=== PATIENT | male | born 1970 | race Caucasian/White ===

== ENCOUNTER 2019-10-20 07:50 | Outpatient (CLI) | payer OTHER, SELFPAY ==
[2019-10-20 09:38] LABS: Alanine Aminotransferase 39 U/L (16-63); Cholesterol 162 mg/dL (0-200); HDL Direct 40 mg/dL (40-60); LDL Cholesterol Calculated 86 mg/dL (<130); Triglycerides 181 mg/dL (0-150)
== END 2019-10-20 07:51 | disposition home or self-care (01) ==
LOC: CHSLAB 07:51
PROVIDERS: Visit Provider Specialist
DX: I25.10 Atherosclerotic heart disease of native coronary artery without angina pectoris (principal)
CPT/HCPCS: 36415; 80061; 84460

== ENCOUNTER 2020-05-08 17:52 | Outpatient (CLI) | payer OTHER, SELFPAY ==
[2020-05-08 18:15] LABS: Hematocrit 43.8 % (40.0-54.0); Hemoglobin 15.1 g/dL (14.0-18.0); Mean Corpuscular HGB Conc 34.5 g/dL (32.0-36.0); Mean Corpuscular Hemoglobin 30.6 pg (27.0-31.0); Mean Corpuscular Volume 88.7 fL (78.0-102.0); Mean Platelet Volume 8.9 fl (8.7-11.0); Platelet Count Result 182 K/mm3 (150-420); Red Blood Count 4.94 M/mm3 (4.70-6.10); Red Cell Distribution Width 12.5 % (11.6-14.4); White Blood Count 8.2 K/mm3 (4.8-10.8)
[2020-05-08 18:42] LABS: Hemoglobin A1C 6.7 % (<5.7)
[2020-05-08 18:47] LABS: Alanine Aminotransferase 59 U/L (16-63); Albumin Level 4.3 g/dL (3.4-5.0); Alkaline Phosphatase 96 U/L (46-116); Anion Gap 8 mmol/L (8-16); Aspartate Amino Transferase 23 U/L (15-37); Bilirubin,Total 0.6 mg/dL (0.00-1.00); Blood Urea Nitrogen 22 mg/dL (7-18); Calcium 9.4 mg/dL (8.5-10.1); Carbon Dioxide 27 mmol/L (21-32); Chloride 102 mmol/L (98-108); Estimated Glomerular Filt Rate > 60; Glucose 129 mg/dL (70-99); Osmolality Calculated 289 mOsm/kg (285-295); Potassium 3.9 mmol/L (3.5-5.1); Sodium 137 mmol/L (136-145); Total Protein 7.3 g/dL (6.4-8.2)
== END 2020-05-08 17:53 | disposition home or self-care (01) ==
LOC: CHSLAB 17:54
PROVIDERS: PCP Family Medicine; Visit Provider Family Medicine
DX: E11.9 Type 2 diabetes mellitus without complications (principal)
CPT/HCPCS: 36415; 80053; 83036; 85027

== ENCOUNTER 2020-06-23 10:05 | Outpatient (CLI) | payer OTHER, SELFPAY ==
[2020-06-24 14:53] LABS: SARS-CoV-2 RNA PCR Negative
== END 2020-06-23 10:06 | disposition home or self-care (01) ==
LOC: CHSLAB 10:07
PROVIDERS: PCP Family Medicine; Visit Provider Family Medicine
DX: Z20.828 Contact with and (suspected) exposure to other viral communicable diseases (principal)
CPT/HCPCS: 87635; C9803; U0003

== ENCOUNTER 2020-07-15 10:15 | Outpatient (CLI) | payer OTHER, SELFPAY ==
[2020-07-15 23:36] LABS: SARS-CoV-2 RNA PCR Negative
== END 2020-07-15 10:16 | disposition home or self-care (01) ==
LOC: CHSLAB 10:18
PROVIDERS: PCP Family Medicine; Visit Provider Family Medicine
DX: Z20.828 Contact with and (suspected) exposure to other viral communicable diseases (principal)
CPT/HCPCS: 87635; C9803; U0003

== ENCOUNTER 2021-08-21 11:31 | Outpatient (CLI) | payer OTHER, SELFPAY ==
--- NOTE | ~2021-08-21 | XR_ITS ---
EXAMINATION: XR chest 2V DATE: 08/21/2021 12:05 INDICATION: COVID positive. Shortness of breath and cough. TECHNIQUE: PA and lateral views of the chest were obtained. COMPARISON: Chest radiograph dated 07/19/2019 FINDINGS: Prominent calcified nodule at the left lower lobe consistent with old granulomatous disease. The lung s remain otherwise clear with no focal airspace opacities, pulmonary edema, pleural effusion or pneum othorax. The cardiomediastinal silhouette is normal. Cholecystectomy clips in the upper abdomen. IMPRESSION: 1. No acute cardiopulmonary disease. Reviewed, dictated and finalized at location B. LINE OPERATOR
== END 2021-08-21 11:32 | disposition home or self-care (01) ==
LOC: CHSIMG 11:34
PROVIDERS: PCP Nurse Practitioner Family; Visit Provider Nurse Practitioner Family
DX: U07.1 COVID-19 (principal)
CPT/HCPCS: 71046

== ENCOUNTER 2021-09-14 13:45 | Outpatient (CLI) | payer OTHER, SELFPAY ==
--- NOTE | 2021-09-14 13:51 | ECG_ITS ---
Measurements Intervals [place] Rate: 80 P: 23 CA: 165 QRS: -12 QRSD: 89 T: 48 QT: 347 QTc: 402 Interpretive Statements SINUS RHYTHM LEFT VENTRICULAR HYPERTROPHY MINIMAL Q WAVES- HIGH LATERAL LEADS BORDERLINE ECG Electronically Signed On 09-14-2021 14:17:34 SENIOR SOFTWARE DEVELOPMENT ENGINEER by Dennys Peck D.O.
[2021-09-14 14:12] LABS: Add Urine Microscopic? YES; Appearance Urine Clear (Clear); Bilirubin Urine Negative (Negative); Blood Urine Negative (Negative); Color Urine Yellow (Yellow); Glucose Urine UA 1+ (Negative); Ketones Urine Negative (Negative); Leukocyte Esterase Ur Negative LEU/UL (Negative); Nitrate Urine Negative (Negative); Protein Urine Negative (Negative); Specific Grav Ur >= 1.030 (1.010-1.020); Urobilinogen Urine 0.2 mg/dL (0.2-1.0)
[2021-09-14 14:16] LABS: Bacteria Urine None seen /hpf; RBC Urine None seen /hpf (0-2); Squamous Epithelial Cell Urine Rare /hpf (Few); WBC Urine None seen /hpf (0-3)
[2021-09-14 14:17] LABS: Mucus Urine Few /lpf
[2021-09-14 14:29] LABS: Troponin I 6.4 ng/L (0.00-60.4)
[2021-09-14 14:54] LABS: Hemoglobin A1C 8.6 % (<5.7)
[2021-09-14 15:09] LABS: Alanine Aminotransferase 55 U/L (16-63); Alkaline Phosphatase 96 U/L (46-116); Anion Gap 11 mmol/L (8-16); Aspartate Amino Transferase 24 U/L (15-37); Bilirubin,Total 0.7 mg/dL (0.00-1.00); Blood Urea Nitrogen 15 mg/dL (7-18); Calcium 9.3 mg/dL (8.5-10.1); Carbon Dioxide 27 mmol/L (21-32); Chloride 100 mmol/L (98-108); Cholesterol 196 mg/dL (0-200); Estimated Glomerular Filt Rate 55; Glucose 181 mg/dL (70-99); HDL Direct 40 mg/dL (40-60); Osmolality Calculated 291 mOsm/kg (285-295); Potassium 4.3 mmol/L (3.5-5.1); Sodium 138 mmol/L (136-145); Total Protein 7.2 g/dL (6.4-8.2)
[2021-09-14 15:13] LABS: LDL Cholesterol Calculated 59 mg/dL (<130); Triglycerides 487 mg/dL (0-150)
[2021-09-14 15:35] LABS: LDL Cholesterol Direct 89 mg/dL (0-130)
== END 2021-09-14 13:46 | disposition home or self-care (01) ==
PROVIDERS: Family Medicine; PCP Nurse Practitioner Family; Visit Provider Nurse Practitioner Family
DX: R07.9 Chest pain, unspecified (principal); R82.90 Unspecified abnormal findings in urine; I10 Essential (primary) hypertension; E11.9 Type 2 diabetes mellitus without complications; E78.5 Hyperlipidemia, unspecified
CPT/HCPCS: 36415; 80053; 80061; 81001; 83036; 83721; 84484; 93005

== ENCOUNTER 2021-09-28 07:43 | Outpatient (CLI) | payer OTHER, SELFPAY ==
--- NOTE | 2021-09-28 09:00 | EST_ITS ---
Patient Info Name: Felipe Foreman Age: 50 years : 1970 Gender: Male Ht: 70 in Wt: 269 lbs BSA: 2.51 m2 HR: 84 bpm BP: 99 / 76 mmHg Technical Quality: Excellent Exam Date: 09/28/2021 9:19 AM Exam Location: [facility], [place] Patient Status: Outpatient Admit Date: 09/28/2021 Staff Ordering Physician: Swetha, Jennifer Stephens APRN Attending Provider: Lawrence, Jennifer Stephens APRN Exercise Technologist: Camila Hale CRT Exercise Physician: Ifeoma Russo CEP Exam Type: CA stress ciara w NM Study Info Indications SOB - CP - A nuclear stress test was performed. History/Risk Factors Hypertension: Yes Dyslipidemia: Yes Diabetes Mellitus: Yes History/Risk Factors CP. SOB. CAD. Diabetes. Dyslipidemia. Hypertension. Summary 1. 1. Negative lexiscan stress test for ischemic ST changes by ECG criteria. 2. 2. Stable hemodynamics throughout the test. 3. 3. Nuclear scan to follow and will be reported separately. Please correlate with it. Protocol: LEXISCAN Stress ECG Details Stage: REST Duration (min): 1 min : 56 sec HR (bpm): 83 SBP (mmHg): 99 DBP (mmHg): 76 Stage: REST Duration (min): 7 min : 17 sec HR (bpm): 82 SBP (mmHg): 99 DBP (mmHg): 76 Stage: STAGE 1 Duration (min): 0 min : 8 sec HR (bpm): 79 SBP (mmHg): 99 DBP (mmHg): 76 Stage: RECOVERY Duration (min): 0 min : 51 sec HR (bpm): 103 SBP (mmHg): 99 DBP (mmHg): 76 Stage: RECOVERY Duration (min): 1 min : 51 sec HR (bpm): 99 SBP (mmHg): 107 DBP (mmHg): 74 Stage: RECOVERY Duration (min): 2 min : 51 sec HR (bpm): 92 SBP (mmHg): 104 DBP (mmHg): 73 Stage: RECOVERY Duration (min): 3 min : 51 sec HR (bpm): 89 SBP (mmHg): 103 DBP (mmHg): 74 Stage: RECOVERY Duration (min): 4 min : 51 sec HR (bpm): 86 SBP (mmHg): 105 DBP (mmHg): 73 Stage: RECOVERY Duration (min): 5 min : 51 sec HR (bpm): 87 SBP (mmHg): 104 DBP (mmHg): 74 Stage: RECOVERY Duration (min): 6 min : 2 sec HR (bpm): 85 SBP (mmHg): 104 DBP (mmHg): 74 Rest HR: 82 bpm Peak HR: 105 bpm Rest Sys BP: 99 mmHg Peak Sys BP: 107 mmHg Max Pred HR: 168 bpm % Max Pred HR: 63 % Target HR: 143 bpm Max RPP: 11,235 bpm*mmHg BP Response: Patient exhibited a hypotensive response with stress Termination Reason: Completed Protocol Cardiac Symptoms: Flushing, Dyspnea, Chest discomfort Total Time: 0 min : 8 sec Rest Kelly BP: 76 mmHg Peak Kelly BP: 74 mmHg Total Dose: 0.4 mg Resting ECG Normal sinus rhythm - normal ECG. Stress ECG No ST changes. Arrhythmias No arrhythmias were observed during the examination. Report Signatures
--- NOTE | 2021-09-28 16:50 | WPDCARIOSTRE ---
Nuclear Stress Test INDICATIONS Indications: CAD, Chest pain PROCEDURE Procedure Performed: Myocardial Perf Spect-Multi Procedure: Patient underwent a lexiscan stress test and immediately was injected with 31.9 mCi of cardiolyte. Multiple tomographic images were obtained. These were of adequate quality. There is no evidence of decrease perfusion noted during stress imaging. A separate resting images were obtained after patient was injected with 9.7 mCi of cardiolyte. Multiple tomographic images were obtained. These were of adequate quality. There is no evidence of decrease perfusion noted during rest imaging. CONCLUSION Conclusion: 1. Normal myocardial perfusion imaging demonstrating no perfusion defects noted during stress or rest imaging. 2. No evidence of reversible ischemia. 3. Left ventriculogram demonstrates normal measured ejection fraction of 66%. No wall motion abnormalities. 4. TID score is normal at 1.03.
== END 2021-09-28 07:44 | disposition home or self-care (01) ==
LOC: CHSIMG 07:45
PROVIDERS: PCP Family Medicine; Visit Provider Internal Medicine Cardiovascular Disease
DX: I25.10 Atherosclerotic heart disease of native coronary artery without angina pectoris (principal); R07.9 Chest pain, unspecified; Z86.16 Personal history of COVID-19; R26.2 Difficulty in walking, not elsewhere classified; R06.02 Shortness of breath
CPT/HCPCS: 78452; 93017; A9502; J2785

== ENCOUNTER 2022-04-09 10:22 | Outpatient (CLI) | payer OTHER, SELFPAY ==
[2022-04-09 11:25] LABS: SARS-CoV-2 RNA PCR Negative (Negative)
== END 2022-04-09 10:23 | disposition home or self-care (01) ==
LOC: CHSLAB 10:24
PROVIDERS: PCP Family Medicine; Visit Provider Family Medicine
DX: R05.9 Cough, unspecified (principal); Z20.822 Contact with and (suspected) exposure to COVID-19
CPT/HCPCS: C9803; U0003; U0005

== ENCOUNTER 2022-04-09 13:59 | Outpatient (CLI) | payer OTHER, SELFPAY ==
--- NOTE | ~2022-04-09 | XR_ITS ---
EXAMINATION: XR chest 2V DATE: 04/09/2022 14:23 INDICATION: Cough, shortness of breath and chest pain TECHNIQUE: PA and lateral views of the chest were obtained. COMPARISON: Chest radiograph dated 08/31/2021 FINDINGS: No interval change in calcified nodules at the medial left lower lung zone consistent with old granul omatous disease. No new airspace opacities, pulmonary edema, pleural effusion or pneumothorax. The ca rdiomediastinal silhouette is normal. Cholecystectomy clips in the upper abdomen. IMPRESSION: 1. No acute cardiopulmonary disease. Reviewed, dictated and finalized at location A.
[2022-04-09 14:27] LABS: Hematocrit 41.9 % (40.0-54.0); Hemoglobin 14.5 g/dL (14.0-18.0); Mean Corpuscular HGB Conc 34.6 g/dL (32.0-36.0); Mean Corpuscular Hemoglobin 31.4 pg (27.0-31.0); Mean Corpuscular Volume 90.7 fL (78.0-102.0); Mean Platelet Volume 9.3 fl (8.7-11.0); Platelet Count Result 188 K/mm3 (150-420); Red Blood Count 4.62 M/mm3 (4.70-6.10); Red Cell Distribution Width 12.8 % (11.6-14.4); White Blood Count 7.9 K/mm3 (4.8-10.8)
[2022-04-09 14:43] LABS: Alanine Aminotransferase 41 U/L (16-63); Albumin Level 3.9 g/dL (3.4-5.0); Alkaline Phosphatase 90 U/L (46-116); Anion Gap 8 mmol/L (8-16); Aspartate Amino Transferase 23 U/L (15-37); Bilirubin,Total 0.7 mg/dL (0.00-1.00); Blood Urea Nitrogen 23 mg/dL (7-18); Calcium 9.2 mg/dL (8.5-10.1); Carbon Dioxide 25 mmol/L (21-32); Chloride 101 mmol/L (98-108); Estimated Glomerular Filt Rate > 60; Glucose 214 mg/dL (70-99); Osmolality Calculated 287 mOsm/kg (285-295); Sodium 134 mmol/L (136-145)
== END 2022-04-09 14:00 | disposition home or self-care (01) ==
LOC: CHSLAB 14:01
PROVIDERS: PCP Family Medicine; Visit Provider Family Medicine
DX: J18.9 Pneumonia, unspecified organism (principal)
CPT/HCPCS: 36415; 71046; 80053; 85027

== ENCOUNTER 2022-10-11 14:51 | Outpatient (CLI) | payer OTHER, SELFPAY ==
--- NOTE | ~2022-10-11 | XR_ITS ---
XR knee LT 3V 10/11/2022 15:17 Indication: Twisting injury of the left knee Procedure: 3 views left knee Comparison: No prior studies for comparison. Findings: No acute fracture, subluxation or dislocation. No significant joint space narrowing. No ludin nt effusion. There is irregular sclerosis in the distal tibial metaphysis, likely benign. Impression: 1: No acute bone or joint abnormality. Reviewed, dictated and finalized at location B. RIBUTION SYSTEMS SERVICEPERSON Impression: 1: No acute bone or joint abnormality.
== END 2022-10-11 14:52 | disposition home or self-care (01) ==
LOC: CHSIMG 14:53
PROVIDERS: PCP Family Medicine; Visit Provider Family Medicine
DX: M25.562 Pain in left knee (principal)
CPT/HCPCS: 73562

== ENCOUNTER 2022-10-18 07:32 | Outpatient (RCR) | payer OTHER, SELFPAY ==
--- NOTE | 2022-10-18 07:59 | PTOPEVAL1 ---
Assessment and note entered by Jerald Velasquez Evaluation Information Assessment Status Evaluation Diagnosis left knee pain Onset 09/15/22 Subjective Information Pt. reports that he was taking a dance class with his and planted his foot and the left knee twisted. He reports that he felt immediate pain. He reports that his pain gradually worsened over 3 weeks. He reports that he did receive a cortisone injection last week which has helped to decrease his pain. He reports pain is most notable with getting up from a seated position, going up and down stairs, as well as with climbing hills. He reports that he is on his feet often with work and is having difficulty with work. He reports that his goal is to decrease his pain with walking. Reported Pain Level Pain Score 0: Self Report Assessment PT Clinical Summary Pt. is a 51 year old male who enters the clinic with left knee pain. Pt. presentation is consistent with distal HS tendonitis, but cannot fully rule out meniscal pathology. continued skilled PT is indicated in order to improve strength and reduce pain in order to allow the pt. to be able to complete all work related duties without pain. Plan of Care Interventions Electrical Stimulation,Hot Pack/Cold Pack,Manual Therapy,Neuro Re-education,Therapeutic Activities, Therapeutic Exercise PT Services Indicated Yes Treatment Frequency and 2x/week x 6 visits Duration These treatments will address the objective and functional deficits as defined above. The patient will be advanced safely and appropriately in order for the patient to progress towards his/her prior level of function. Additional exercises will be introduced and as well as a comprehensive home exercise program upon discharge, if needed, ?to ensure carryover of functional gains achieved in the clinic. This treatment plan has been reviewed and agreement upon by the patient.
--- NOTE | 2022-11-05 08:15 | PTOPEVAL1 ---
Assessment and note entered by JT File, PT Evaluation Information Assessment Status Discharge Diagnosis left knee pain Onset 09/15/22 Subjective Information patient reports he feels about the same as when he started therapy. he reports he feels the knee will get a little better, and then gets worse again. he continues to have pain with standing/ walking and getting into and out of a car. Reported Pain Level Pain Score 4: Self Report Assessment PT Clinical Summary mr. hines presents to skilled PT services for his 6th skilled PT visit. he continues to presents with pain at rest, pain with activities, pain with palpation, and positive medial appleys compression. his symptoms are still suspect for a possible medial meniscus tear. he would benefit from DC of therapy at this time, and return to MD for MRI referral. he has only met goals for LE strength and HEP performance. Plan of Care Interventions Electrical Stimulation,Hot Pack/Cold Pack,Manual Therapy,Neuro Re-education,Therapeutic Activities, Therapeutic Exercise PT Services Indicated Yes Treatment Frequency and DC to MD for MRI referral Duration These treatments will address the objective and functional deficits as defined above. The patient will be advanced safely and appropriately in order for the patient to progress towards his/her prior level of function. Additional exercises will be introduced and as well as a comprehensive home exercise program upon discharge, if needed, ?to ensure carryover of functional gains achieved in the clinic. This treatment plan has been reviewed and agreement upon by the patient.
== END 2022-11-05 10:52 | disposition home or self-care (01) ==
LOC: CHSPT 07:32
PROVIDERS: PCP Family Medicine; Visit Provider Family Medicine
DX: M25.562 Pain in left knee (principal)
CPT/HCPCS: 97110; 97112; 97140; 97161; 97530

== ENCOUNTER 2022-12-02 07:27 | Outpatient (CLI) | payer OTHER, SELFPAY ==
--- NOTE | ~2022-12-02 | MR_ITS ---
MRI of the left knee Clinical history: Medial pain Technique: Coronal proton density and proton density-weighted images, sagittal proton-density and T2 fat-sat images, and axial proton-density fat-saturated images were acquired. Findings: Anterior and posterior cruciate ligaments are intact. Medial collateral ligament and the la teral collateral ligament complex are intact. Popliteus tendon is intact. Medial and lateral menisci appear intact, without definite tear. Articular cartilage is well preserved in the medial lateral compartments, and along the femoral troch harshil. There is patchy moderate chondromalacia patella. Extensor mechanism is intact. No significant joint effusion. Small [place] cyst present. There is semim embranosus bursitis. Impression: Semimembranosus bursitis. Small Reno's cyst. No ligamentous injury or meniscal tear. Patchy moderate chondromalacia patella. Reviewed, dictated and finalized at [facility]. Impression: Semimembranosus bursitis. Small Reno's cyst. No ligamentous injury or meniscal tear. Patchy moderate chondromalacia patella.
== END 2022-12-02 07:28 | disposition home or self-care (01) ==
LOC: CHSIMG 07:28
PROVIDERS: PCP Family Medicine; Visit Provider Family Medicine
DX: M25.562 Pain in left knee (principal); M71.562 Other bursitis, not elsewhere classified, left knee; M71.22 Synovial cyst of popliteal space [Baker], left knee; M94.262 Chondromalacia, left knee
CPT/HCPCS: 73721

== ENCOUNTER 2023-03-30 15:50 | Outpatient (CLI) | payer OTHER, SELFPAY ==
[2023-03-30 16:09] LABS: Basophils Absolute Auto 0.03 K/mm3 (0.00-0.10); Basophils Percent Auto 0.4 % (0.0-1.0); Eosinophils Absolute Auto 0.08 K/mm3 (0.02-0.50); Hematocrit 38.9 % (40.0-54.0); Hemoglobin 13.4 g/dL (14.0-18.0); Immature Granulocyte Absolute 0.03 K/mm3 (0.00-0.00); Immature Granulocyte Percent A 0.4 % (0.0-0.0); Lymphocytes Absolute Auto 2.42 K/mm3 (1.10-4.50); Lymphocytes Percent Auto 30.6 % (18.0-42.0); Mean Corpuscular HGB Conc 34.4 g/dL (32.0-36.0); Mean Corpuscular Hemoglobin 30.4 pg (27.0-31.0); Mean Corpuscular Volume 88.2 fL (78.0-102.0); Mean Platelet Volume 9.3 fl (8.7-11.0); Monocytes Absolute Auto 0.51 K/mm3 (0.10-0.90); Monocytes Percent Auto 6.5 % (2.0-11.0); Neutrophils Absolute Auto 4.8 K/mm3 (1.7-7.2); Neutrophils Percent Auto 61.1 % (50.0-70.0); Platelet Count Result 197 K/mm3 (150-420); Red Blood Count 4.41 M/mm3 (4.70-6.10); Red Cell Distribution Width 13.2 % (11.6-14.4); White Blood Count 7.9 K/mm3 (4.8-10.8)
[2023-03-30 16:18] LABS: Hemoglobin A1C 6.4 % (<5.7)
[2023-03-30 16:35] LABS: Appearance Urine Clear (Clear); Bilirubin Urine Negative (Negative); Blood Urine Negative (Negative); Color Urine Light Yellow (Yellow); Glucose Urine UA Negative (Negative); Ketones Urine Negative (Negative); Leukocyte Esterase Ur Negative (Negative); Nitrate Urine Negative (Negative); Protein Urine Negative (Negative); Specific Grav Ur 1.015 (1.010-1.020); Urobilinogen Urine 0.2 mg/dL (0.2-1.0)
[2023-03-30 16:37] LABS: Add Urine Microscopic? NO
[2023-03-30 16:41] LABS: Alanine Aminotransferase 33 U/L (16-63); Albumin Level 4.1 g/dL (3.4-5.0); Alkaline Phosphatase 82 U/L (46-116); Anion Gap 11 mmol/L (8-16); Aspartate Amino Transferase 22 U/L (15-37); Bilirubin,Total 0.7 mg/dL (0.00-1.00); Blood Urea Nitrogen 19 mg/dL (7-18); Calcium 9.6 mg/dL (8.5-10.1); Carbon Dioxide 28 mmol/L (21-32); Chloride 104 mmol/L (98-108); Cholesterol 139 mg/dL (0-200); Estimated Glomerular Filt Rate 55; Glucose 100 mg/dL (70-99); HDL Direct 42 mg/dL (40-60); LDL Cholesterol Calculated 66 mg/dL (<130); Osmolality Calculated 298 mOsm/kg (285-295); Potassium 4.5 mmol/L (3.5-5.1); Prostate Specific Antigen 0.5 ng/mL (< OR = 4.0); Sodium 143 mmol/L (136-145); Triglycerides 154 mg/dL (0-150)
[2023-03-30 16:43] LABS: Creatinine Urine 103.66 mg/dL (40-278); MALB Creatinine Ratio 12.5 mg/g (0-30); Microalbumin Urine Random < 13.0 mg/L
== END 2023-03-30 15:51 | disposition home or self-care (01) ==
LOC: CHSLAB 15:52
PROVIDERS: PCP Family Medicine; Visit Provider Family Medicine
DX: R30.0 Dysuria (principal); R35.1 Nocturia; E11.9 Type 2 diabetes mellitus without complications; I10 Essential (primary) hypertension
CPT/HCPCS: 36415; 80053; 80061; 81003; 82043; 83036; 84153; 85025; G0103

== ENCOUNTER 2023-10-28 09:50 | Outpatient (CLI) | payer OTHER, SELFPAY ==
[2023-10-28 10:22] LABS: Hemoglobin A1C 5.5 % (<5.7)
[2023-10-28 10:45] LABS: HIV 1 P24 AG Negative (Negative); HIV 1/2 AB Negative (Negative)
[2023-11-01 07:27] LABS: Chlamydia trachomatis NOT DETECTED (NOT DETECTE); Neisseria gonorrhoeae PCR NOT DETECTED (NOT DETECTE)
[2023-11-02 21:42] LABS: Hepatitis A Antibody IgM Nonreactive; Hepatitis B Core Antibody Nonreactive (Nonreactive); Hepatitis B Surface Antigen Nonreactive (Nonreactive); Hepatitis C Virus Antibody Nonreactive
== END 2023-10-28 09:51 | disposition home or self-care (01) ==
LOC: CHSLAB 09:52
PROVIDERS: PCP Family Medicine; Visit Provider Family Medicine
DX: E11.9 Type 2 diabetes mellitus without complications (principal); R74.01 Elevation of levels of liver transaminase levels; R21 Rash and other nonspecific skin eruption
CPT/HCPCS: 36415; 80074; 83036; 86695; 86696; 87491; 87591; 87806

== ENCOUNTER 2024-11-13 09:20 | Emergency (ER) | payer OTHER, SELFPAY ==
--- NOTE | ~2024-11-13 | XR_ITS ---
Portable chest x-ray Comparison: 04/09/2022 Clinical History: Chest pain, shortness of breath Findings: Lungs are clear, without focal consolidation or pleural effusion. Cardiomediastinal silho uette is stable. Bones and soft tissues are unremarkable. Impression: Clear lungs. Reviewed, dictated and finalized at location . Impression: Clear lungs.
[2024-11-13 09:20] VITALS: PULSE 69
--- NOTE | 2024-11-13 09:24 | ECG_ITS ---
Test Date: 2024-11-13 09:28:47 Measurements Intervals [place] Rate: 71 P: 47 MN: 171 QRS: 8 QRSD: 106 T: 61 QT: 369 QTc: 401 Interpretive Statements SINUS RHYTHM NORMAL ECG No previous ECG available for comparison Electronically Signed On 11-13-2024 09:35:36 CDT by Dennys Peck D.O.
[2024-11-13 09:25] VITALS: BP 136/88; PULSE 85; RESP 16; TEMP 36.6; O2SAT 98
--- NOTE | 2024-11-13 09:27 | ED.CHESTPAIN ---
HPI - Chest Pain General Chief Complaint: Chest Pain Stated Complaint: CHEST PAIN Time Seen by Provider: 11/13/24 09:26 Source: patient Mode of arrival: ambulatory Limitations: no limitations History of Present Illness HPI narrative: Patient is a 53-year-old male with known CAD in 50% coronary blockage a few years ago. He is here with chest pain on and off at rest but not exertion. He is not having any shortness of breath. MD complaint: chest pain Pertinent past history: coronary artery disease and other ( Hypertension, hyperlipidemia) Onset (ago): day(s) ( 1) Timing of current episode: episodic Onset: during rest Pain location: left chest Pain radiation: left arm Severity: mild Pain scale (0-10): 3 Quality: tightness and sharp Relieving factors: nothing Exacerbating factors: other ( patient has cervical spine neck problems which could be contributing to his left arm pain per his information) Context: other ( patient having chest pain on and off for the past day here for evaluation and reassurance) Associated symptoms: other ( none) Treatment prior to arrival: none Risk Factors Coronary artery disease risk factors: hyperlipidemia and hypertension Thoracic aortic dissection risk factors: none Related Data Home Medications ?Medication ?Instructions ?Recorded ?Confirmed ?Last Taken ?Type amlodipine 5 mg tablet 5 mg PO DAILY 10/28/23 07/18/24 Unknown History Allergies Allergy/AdvReac Type Severity Reaction Status Date / Time No Known Allergies Allergy Verified 07/31/24 13:36 Review of Systems Review of Systems: All systems reviewed & are unremarkable except as noted in HPI and below Constitutional: Constitutional: Reports no additional constitutional complaints Eyes: Eyes: Reports no additional eye complaints ENT: Reports system reviewed and no additional complaints, except as documented Cardiovascular: Cardiovascular: Reports no additional cardiovascular complaints Respiratory: Respiratory: Reports no additional respiratory complaints Gastrointestinal: Gastrointestinal: Reports no additional gastrointestinal complaints Genitourinary: Genitourinary: Reports no additional male genitourinary complaints Musculoskeletal: Musculoskeletal: Reports no additional musculoskeletal complaints Integumentary/Breasts: Skin/Breast: Reports system reviewed and no additional complaints, except as docu Neurologic: Reports system reviewed and no additional complaints, except as documented Psychiatric: Psychiatric: Reports no additional psychiatric complaints Endocrine: Endocrine: Reports no additional endocrine complaints Hematologic/Lymphatic: Hematologic/Lymphatic: Reports no additional hematologic/lymphatic complaints Allergic/Immunologic: Allergic/Immunologic: Reports no additional allergic/immunologic complaints PMFSH Past Medical History Medical History CKD (chronic kidney disease) IBS (irritable bowel syndrome) Hyperlipidemia DM2 (diabetes mellitus, type 2) WILFREDO (obstructive sleep apnea) Uses CPAP Overweight Surgical History Surgical History History of cholecystectomy 2016 History of hernia repair History of tonsillectomy and adenoidectomy Social History Social History Smoking status: Smoker, status unknown Living arrangements: with family Occupation/Education: occupation Additional occupation/education comments: Works at [employer] Gender identity (if verbalized by the patient): Male Exam Const: General: healthy appearing Nutritional Appearance: well nourished Orientation/consciousness: patient oriented x3 Limitations: no limitations HENMT: Head: normal to inspection Ears: external ears normal Face/Nose/Sinus: Normal external nose present Eyes: Conjunctivae: conjunctivae normal Pupils: Equal, round and reactive pupils present EOM: EOMs intact bilaterally Neck: Neck: normal visual inspection Chest: Chest palpation & inspection: normal inspection of the chest Resp: Effort & Inspection: normal respiratory effort and not labored Auscultation: clear to auscultation bilaterally and no crackles Cardio: Rate: regular rate Rhythm: regular rhythm Heart sounds: no murmurs GI: Inspection: non-distended GI Palp: Yes Soft to palpation and No Tenderness to palpation present (GI) Auscultation: normal bowel sounds : General: Yes bladder normal to palpation Back/Spine/Pelvis: Back: no CVA tenderness Skin: General skin exam: normal color Rashes: no rashes Wounds: no wounds Neuro: General: patient oriented x3 Cranial nerves: Yes Nystagmus not present Speech: normal speech Gait exam (Neuro): Normal gait present Extrem: General: normal to inspection Psych: Mental Status: mental status grossly normal Affect: normal affect Attitude: cooperative Course Vital Signs Vital signs: Vital Signs Pulse Rate 69 11/13/24 09:20 Oxygen Delivery Room Air 11/13/24 09:20 Temperature 36.6 C 11/13/24 09:25 Pulse Rate 85 11/13/24 09:25 Respiratory Rate 16 11/13/24 09:25 Blood Pressure 136/88 11/13/24 09:25 Pulse Oximetry 98 11/13/24 09:25 Oxygen Delivery Room Air 11/13/24 09:25 MDM - Chest Pain MDM Narrative Medical decision making narrative: patient is a 53-year-old male with some chest pain and known CAD here for evaluation. Will do a cardiac pulmonary workup at this time. We will do a double troponin and check with his orthodontic lab technician for further planning before disposition. Lab Data Attestation: I reviewed the patient's lab results. 11/13/24 09:38 11/13/24 09:38 Labs: Lab Results 11/13/24 11/13/24 Range/Units 09:38 11:53 WBC 5.3 (4.8-10.8) K/mm3 RBC 4.64 L (4.70-6.10) M/mm3 Hgb 13.8 L (14.0-18.0) g/dL Hct 39.5 L (40.0-54.0) % MCV 85.1 (78.0-102.0) fL MCH 29.7 (27.0-31.0) pg MCHC 34.9 (32-36) g/dL RDW 12.9 (11.6-14.4) % Plt Count 162 (150-420) K/mm3 MPV 8.9 (8.7-11.0) fl Immature Gran % (Auto) 0.2 H (0.0-0.0) % Neut % (Auto) 65.9 (50.0-70.0) % Lymph % (Auto) 27.0 (18.0-42.0) % [place] % (Auto) 5.6 (2.0-11.0) % Eos % (Auto) 0.7 L (1.0-6.0) % Baso % (Auto) 0.6 (0.0-1.0) % Lymph # (Auto) 1.44 (1.10-4.50) K/mm3 [place] # (Auto) 0.30 (0.10-0.90) K/mm3 Eos # (Auto) 0.04 (0.02-0.50) K/mm3 Baso # (Auto) 0.03 (0.00-0.10) K/mm3 Abs Immat Gran (auto) 0.01 H (0.00-0.00) K/mm3 Absolute Neuts (auto) 3.52 (1.70-7.20) K/mm3 Absolute Nucleated RBC 0.00 (0.00-0.00) K/mm3 Nucleated RBC % 0.0 (0-0.0) % PT 11.3 (9.50-12.1) Seconds INR 1.0 APTT 27.5 (23.9-30.70) Sec D-Dimer 0.19 (0.19-0.50) mg/L Sodium 138 (136-145) mmol/L Potassium 4.0 (3.5-5.1) mmol/L Chloride 103 (98-108) mmol/L Carbon Dioxide 26 (21-32) mmol/L Anion Gap 9 (4-12) mmol/L BUN 15 (7-18) mg/dL Creatinine 1.14 (0.70-1.30) mg/dL Estim Creat Clear Calc 67 ml/min Estimated GFR > 60 (59 - ) Glucose 167 H (70-99) mg/dL Calculated Osmolality 290 (285-295) mOsm/kg Calcium 8.9 (8.5-10.1) mg/dL Total Bilirubin 0.7 (0.00-1.00) mg/dL AST 23 (15-37) U/L ALT 29 (16-63) U/L Alkaline Phosphatase 90 (46-116) U/L Troponin I 5.5 6.9 (0.00-60.4) ng/L NT-Pro-B Natriuret Pep 33 (0-125) pg/mL Total Protein 6.9 (6.4-8.2) g/dL Albumin 4.1 (3.4-5.0) g/dL Lipase 19 (16-77) U/L Imaging Data Attestation: I personally reviewed and interpreted this imaging study as follows: ECG Data EKG #1: Attestation: I personally reviewed and interpreted this ECG as follows: ECG completion date: 11/13/24 ECG completion time: 11:20 EKG Interpretation: normal rate, sinus rhythm, no ectopy, normal QRS, normal QT, NL axis and no acute changes Discharge Plan Discharge Clinical Impression: Chest pain Qualifiers: Chest pain type: precordial pain Qualified Code(s): R07.2 - Precordial pain Patient Disposition: Home, Self-Care Condition: Stable Instructions: Chest Pain (ED) Additional Instructions: please follow-up with the primary doctor in the next week. Please follow-up with the orthodontic lab technician in the next week. Further outpatient testing suggested. Come back to the ER with any further chest pain. Patient Language: Kazakh Prescriptions: No Action amlodipine 5 mg tablet 5 mg PO DAILY fluticasone propionate [Allergy Relief (fluticasone)] 50 mcg/actuation spray,suspension 1 spray intranasal DAILY Qty: 16 0RF Rx Instructions: administer into each nostril sildenafil (pulm.hypertension) 20 mg tablet See Rx Instructions .ROUTE .COMPLEX Qty: 60 0RF Dose Instruction: TAKE 1-5 TABLETS BY MOUTH ON HOUR PRIOR TO SEXUAL ACTIVITY DAILY NEEDED Rx Instructions: TAKE 1-5 TABLETS BY MOUTH ON HOUR PRIOR TO SEXUAL ACTIVITY DAILY NEEDED Mounjaro 5 mg/0.5 mL pen injector See Rx Instructions .ROUTE .COMPLEX Qty: 2 0RF Dose Instruction: INJECT 5 MG SUBCUTANEOUSLY WEEKLY (E11.9) Rx Instructions: INJECT 5 MG SUBCUTANEOUSLY WEEKLY (E11.9) pravastatin 10 mg tablet See Rx Instructions .ROUTE .COMPLEX Qty: 90 0RF Dose Instruction: TAKE ONE TABLET BY MOUTH BEDTIME Rx Instructions: TAKE ONE TABLET BY MOUTH BEDTIME Follow-up/Referrals: Andrew Giles DO [Primary Care Provider] - Time of Disposition: 11:21
[2024-11-13 09:47] LABS: Basophils Absolute Auto 0.03 K/mm3 (0.00-0.10); Basophils Percent Auto 0.6 % (0.0-1.0); Eosinophils Absolute Auto 0.04 K/mm3 (0.02-0.50); Eosinophils Percent Auto 0.7 % (1.0-6.0); Hematocrit 39.5 % (40.0-54.0); Hemoglobin 13.8 g/dL (14.0-18.0); Immature Granulocyte Absolute 0.01 K/mm3 (0.00-0.00); Immature Granulocyte Percent A 0.2 % (0.0-0.0); Lymphocytes Absolute Auto 1.44 K/mm3 (1.10-4.50); Mean Corpuscular HGB Conc 34.9 g/dL (32-36); Mean Corpuscular Hemoglobin 29.7 pg (27.0-31.0); Mean Corpuscular Volume 85.1 fL (78.0-102.0); Mean Platelet Volume 8.9 fl (8.7-11.0); Monocytes Percent Auto 5.6 % (2.0-11.0); Neutrophils Absolute Auto 3.52 K/mm3 (1.70-7.20); Neutrophils Percent Auto 65.9 % (50.0-70.0); Platelet Count Result 162 K/mm3 (150-420); Red Blood Count 4.64 M/mm3 (4.70-6.10); Red Cell Distribution Width 12.9 % (11.6-14.4); White Blood Count 5.3 K/mm3 (4.8-10.8)
--- OUTSIDE RECORDS SUMMARY | 2024-11-13 09:52 | XMS_ITS | Encounter Summary ---
Author Organization [facility] Address [facility] [place] [address] Care Team Providers Care Correctional Probation Officer Name Role Phone Ky Sandoval MD Unavailable Unavailabl e Andrew Giles DO Primary Care Provider [phone] Jennifer Posada APRN, PRESSURIZATION MECHANIC-C Unavailable Ritchie Forrester MD Unavailable Encounter Details Date Type Department Care Team (Latest Contact Info) Description 06/02/2023 [employer] Message Enc [place] [address] [place] [address] Jennifer Posada APRN, PRESSURIZATION MECHANIC-C [address] [facility] [address] [place] [address] Effect of weight loss on prescriptions Social History Tobacco Use Types Packs/Day Years Used Date Smoking Tobacco: Former Smokeless Tobacco: Never Alcohol Use Standard Drinks/Week Comments Yes 0 (1 standard drink = 0.6 oz pur e alcohol) weekends Sex and Gender Information Value Date Recorded Sex Assigned at Not on file Legal Sex Male 9:56 AM PILOT MANAGER Gender Identity Male 09/14/2021 1:55 PM PILOT MANAGER Sexual Orientation Straight 09/14/2021 1: 55 PM PILOT MANAGER Occupation Industry Job Start Date Job End Date Not on file Not on file Not on file Not on file documented as of this encounter Plan of Treatment Upcoming Encounters Date Type Department Care Team (Late st Contact Info) Description 07/22/2025 1:30 PM PILOT MANAGER Office Visit [facility] [address] [place] [phone] Jennifer Posada APRN, PRESSURIZATION MECHANIC-C [address] [facility] [address] [place] [phone] documented as of this encounter Visit Diagnoses Not on filedocumented in this encounter Care Teams Correctional Probation Officer Relationship Specialty Start Date End Date Andrew Giles DO [address] [place] [address] PCP - General FAMILY PRACTICE 12/31/20 Ky Sandoval MD [place] Fruit Grading Supervisor CARDIOVASCULAR DISEASE 08/13/19 03/29/24 Jennifer Posada APRN, PRESSURIZATION MECHANIC-C [address] [facility] [address] [place] [phone] NURSE PRACTITIONER 03/30/24 Ritchie Forrester MD [address] [facility] [address] [place] [phone] Consulting Physician INTERVENTIONAL CARDIOLOGY 07/24/24 documented as of this encounter
--- OUTSIDE RECORDS SUMMARY | 2024-11-13 09:52 | XMS_ITS | Clinical Summary ---
Author Organization [facility] Address [address] [place] [address] Care Team Providers Care It Network Engineer Name Role Phone AnujaAndrew novoa Primary Care Provider [phone] Jennifer Posdaa APRN [place] GUIDEMilagrosC Unavailable Ritchie Forrester MD Unavailable Allergies Active Allergy Reactions Criticality Noted Date Comments Carvedilol Chest pressure 10/23/2019 Intolerance Medications pravastatin 10 MG tablet Take 1 tablet (10 mg total) by mouth nightly at bedtime. 90 tablet 3 0 Active nitroglycerin 0.[address] 1 tablet (0.4 mg total) under the tongue every 5 (five) minutes as needed for Chest Pain. 25 tablet 2 Active ASPIRIN LOW DOSE 81 MG chewable tablet CHEW AND SWALLOW ONE TABLET BY MOUTH EVERY MORNING 90 tablet 2 2 Active Multiple Vitamin (MULTIVITAMIN ADULT OR) Take 1 tablet by mouth daily. Active amLODIPine (NORVASC) 2.5 MG tabletIndications :Primary hypertension TAKE ONE TABLET BY MOUTH DAILY IN THE MORNING 90 tablet 4 Active fluticasone propionate (FLONASE) 50 MCG/ACT nasal spray 1 spray by Nasal route as needed. 4 Active valACYclovir (VALTREX) 500 MG tablet as needed. 4 Active MOUNJARO 5 MG/0.5ML injection Inject as directed once a week. Active Active Problems Problem Noted Date Diagnosed Date Hyperlipidemia 10/23/2019 WILFREDO (obstructive sleep apnea) 09/03/2019 Erectile dysfunction due to arterial insufficien cy 09/03/2019 Coronary artery disease DM (diabetes mellitus), type 2 ([facility]) Hypertension Encounters Date Type Department Care Team Description 11/13/2024 MyChart Message Enc [facility] [address] [place] [phone] Jennifer Posada, [place]O, WIMLAC Alfie Mobile EKG from Last 3 Months Family History Medical History Relation Comments COPD Father Relation Status Comments Father Alive Mother Social History Tobacco Use Types Packs/Day Years Used Date Smoking Tobacco: Former Smokeless Tobacco: Never Tobacco Cessation:Counseling Given: Not Answered Alcohol Use Standard Drinks/Week Comments Yes 0 (1 standard drink = 0.6 oz pur e alcohol) weekends Sex and Gender Information Value Date Recorded Sex Assigned at Not on file Legal Sex Male 9:56 AM ORDER PICKER Gender Identity Male 09/14/2021 1:55 PM ORDER PICKER Sexual Orientation Straight 09/14/2021 1: 55 PM ORDER PICKER Occupation Industry Job Start Date Job End Date Not on file Not on file Not on file Not on file Last Filed Vital Signs Vital Sign Reading Time Taken Comments Blood Pressure 116/74 07/23/2024 2:04 PM ORDER PICKER Pulse 61 07/23/2024 2:04 PM ORDER PICKER Temperature 36.7 C (98.1 F) 02/14/2023 11:15 AM CDT Respiratory Rate 18 07/23/2024 2:04 PM ORDER PICKER Oxygen Saturation 98% 07/23/2024 2:04 PM ORDER PICKER Inhaled Oxygen Concentration - - Weight 86.2 kg (190 lb) 07/23/2024 2:04 PM ORDER PICKER Height 177.8 cm (5' 10 ) 07/23/2024 2:04 PM ORDER PICKER Body Mass Index 27.26 07/23/2024 2:04 PM ORDER PICKER Plan of Treatment Upcoming Encounters Date Type Department Care Team (Late st Contact Info) Description 07/22/2025 1:30 PM ORDER PICKER Office Visit [facility] eld [address] [place] [address] Jennifer Posada, CAMPUS ADMINISTRATOR, [place] GUIDE-C [address] [facility] [address] [place] [phone] Health Maintenance Due Date Last Done Comments ASCVD Statin 1968 Colorectal Cancer Screening Colonoscopy (10 Years) 1968 Kidney Health Evaluation 1968 Annual Physical 01/01/1972 Pneumococcal Vaccine: Pediatrics (0 to 5 Years) and At-Risk Patients (6 to 64 Years) (1 of 2 - PCV) 1974 Diabetes: Retinopathy Eye Exam 1986 Hepatitis C 1986 DTaP, Tdap and Td Vaccines (1 - Tdap) 01/01/1988 Hepatitis B Vaccines (1 of 3 - 19+ 3-dose series) 01/01/1988 Zoster Vaccines (1 of 2) 2018 Hemoglobin A1C 03/14/2022 09/14/2021 ASCVD LDL 03/30/2024 03/30/2023, 06/0 04/2023, 09/14/2021, Additional history exists Lipid Panel 03/30/2024 03/30/2023, 06/0 04/2023, 09/14/2021, Additional history exists COVID-19 Vaccine ( season) 2024 10/08/2020, 09/17/2020 Meningococcal B Vaccine Aged Out No l onger eligible based on patient's age to complete this topic Meningococcal Vaccine Aged Out No mirna ariel eligible based on patient's age to complete this topic RSV Immunizations Under 20 Months Aged Out No longer eligible based on patient's age to complete this topic Procedures Procedure Name Priority Date/Time Associated Diagnosis Comments LIPID PANEL Routine 03/30/2023 HEMOGLOBIN, GLYCOSYLATED Routine 09/14/2021 from Last 3 Months or Most Recently Relevant to Health Maintenance Results * (ABNORMAL) LIPID PANEL (03/30/2023) CHOLESTEROL 139 0 - 200 HDL 42 40 - 60 TRIGLYCERIDES 154(A) 0 - 150 LDL (CALCULATED) 66 <130 03/30/2023 us Default History Genericprovider LABORATORY Final Result * HEMOGLOBIN, GLYCOSYLATED (09/14/2021) HGB A1C 8.6 % 09/14/2021 us Doc [facility] LABORATORY Final Result from Last 3 Months or Most Recently Relevant to Health Maintenance Insurance [employer] Advance Directives * Full Code (Latest Code Status on File) Date Activated Date Inactivated Comments 09/17/2019 4:43 PM 09/17/2019 8:20 PM Care Teams It Network Engineer Relationship Specialty Start Date End Date Andrew Giles DO [address] [place] [address] PCP - General FAMILY PRACTICE 12/31/20 Jennifer Posada, [place], [place] GUIDE-C [address] [facility] [address] [place] [address] NURSE PRACTITIONER 03/30/24 Ritchie Forrester MD [address] [facility] [address] [place] [phone] Consulting Physician INTERVENTIONAL CARDIOLOGY 07/24/24
--- OUTSIDE RECORDS SUMMARY | 2024-11-13 09:52 | XMS_ITS | Encounter Summary ---
Author Organization [facility] Address [facility] [place] [address] Care Team Providers Care Histology Tech Name Role Phone Ky Sandoval MD Unavailable Unavailabl e Andrew Giles DO Primary Care Provider [phone] Jennifer Posada APRN SUPERVISOR ASSEMBLY AND PACKING-C Unavailable Ritchie Forrester MD Unavailable [phone] Encounter Details Date Type Department Care Team (Late st Contact Info) Description 08/02/2023 MyChart Message Enc [facility] [address] [place] [address] Ky Sandoval MD Blood Pressure readings after medicine change Social History Tobacco Use Types Packs/Day Years Used Date Smoking Tobacco: Former Smokeless Tobacco: Never Alcohol Use Standard Drinks/Week Comments Yes 0 (1 standard drink = 0.6 oz pur e alcohol) weekends Sex and Gender Information Value Date Recorded Sex Assigned at Not on file Legal Sex Male 9:56 AM SHOW DESIGN SUPERVISOR Gender Identity Male 09/14/2021 1:55 PM SHOW DESIGN SUPERVISOR Sexual Orientation Straight 09/14/2021 1: 55 PM SHOW DESIGN SUPERVISOR Occupation Industry Job Start Date Job End Date Not on file Not on file Not on file Not on file documented as of this encounter Plan of Treatment Upcoming Encounters Date Type Department Care Team (Late st Contact Info) Description 07/22/2025 1:30 PM SHOW DESIGN SUPERVISOR Office Visit [facility] [address] [place] [address] Jennifer Posada APRN, SUPERVISOR ASSEMBLY AND PACKING-C [address] [facility] [address] [place] [address] documented as of this encounter Visit Diagnoses Not on filedocumented in this encounter Care Teams Histology Tech Relationship Specialty Start Date End Date Andrew Giles DO [address] [place] [address] PCP - General FAMILY PRACTICE 12/31/20 Ky Sandoval MD [place] Enlisted Advisor CARDIOVASCULAR DISEASE 08/13/19 03/29/24 Jennifer Posada APRN, SUPERVISOR ASSEMBLY AND PACKING-C [address] [facility] [address] [place] [address] NURSE PRACTITIONER 03/30/24 Ritchie Forrester MD [address] [facility] [address] [place] [address] Consulting Physician INTERVENTIONAL CARDIOLOGY 07/24/24 documented as of this encounter
--- OUTSIDE RECORDS SUMMARY | 2024-11-13 09:52 | XMS_ITS | Encounter Summary ---
Author Organization [facility] Address [facility] [place] [address] Care Team Providers Care Paint Mixer Name Role Phone Anujasommer Andrew DEE Primary Care Provider [phone] Jennifer Posada APRN, MANAGER COMMISSION-C Unavailable [phone] Ritchie Forrester MD Unavailable [phone] Encounter Details Date Type Department Care Team ([facility] Contact Info) Description 07/24/2024 [employer] Message Enc [facility] [address] [place] [address] Jennifer Posada APRN, MANAGER COMMISSION-C [address] [facility] [address] [place] [address] Your requested information Social History Tobacco Use Types Packs/Day Years Used Date Smoking Tobacco: Former Smokeless Tobacco: Never Alcohol Use Standard Drinks/Week Comments Yes 0 (1 standard drink = 0.6 oz pur e alcohol) weekends Sex and Gender Information Value Date Recorded Sex Assigned at Not on file Legal Sex Male 9:56 AM AGRICULTURAL RESEARCH DIRECTOR Gender Identity Male 09/14/2021 1:55 PM AGRICULTURAL RESEARCH DIRECTOR Sexual Orientation Straight 09/14/2021 1: 55 PM AGRICULTURAL RESEARCH DIRECTOR Occupation Industry Job Start Date Job End Date Not on file Not on file Not on file Not on file documented as of this encounter Plan of Treatment Upcoming Encounters Date Type Department Care Team ([facility] st Contact Info) Description 07/22/2025 1:30 PM AGRICULTURAL RESEARCH DIRECTOR Office Visit [facility] el [address] [place] [phone] Jennifer Posada APRN, MANAGER COMMISSION-C [address] [phone] documented as of this encounter Visit Diagnoses Not on filedocumented in this encounter Care Teams Paint Mixer Relationship Specialty Start Date End Date Andrew Giles DO [address] [place] [address] PCP - General FAMILY PRACTICE 12/31/20 Jennifer Posada APRN, MANAGER COMMISSION-C [address] [address] NURSE PRACTITIONER 03/30/24 Ritchie Forrester MD [address] [address] Consulting Physician INTERVENTIONAL CARDIOLOGY 07/24/24 documented as of this encounter
--- OUTSIDE RECORDS SUMMARY | 2024-11-13 09:52 | XMS_ITS | Encounter Summary ---
Author Organization [facility] Address [facility] [place] [address] Care Team Providers Care Credit Assessment Analyst Name Role Phone Ky Sandoval MD Unavailable Unavailabl e Andrew Giles DO Primary Care Provider Jennifer Posada APRN, RESEARCH QUALITY ASSURANCE SPECIALIST-C Unavailable [phone] Ritchie Forrester MD Unavailable [phone] Encounter Details Date Type Department Care Team (Late st Contact Info) Description 06/16/2023 [employer] Message Enc [facility] ield [address] [place] [address] Jennifer Posada APRN, RESEARCH QUALITY ASSURANCE SPECIALIST-C [address] [facility] [address] [place] [address] refill request Social History Tobacco Use Types Packs/Day Years Used Date Smoking Tobacco: Former Smokeless Tobacco: Never Alcohol Use Standard Drinks/Week Comments Yes 0 (1 standard drink = 0.6 oz pur e alcohol) weekends Sex and Gender Information Value Date Recorded Sex Assigned at Not on file Legal Sex Male 9:56 AM DISPLAY SPECIALIST Gender Identity Male 09/14/2021 1:55 PM DISPLAY SPECIALIST Sexual Orientation Straight 09/14/2021 1: 55 PM DISPLAY SPECIALIST Occupation Industry Job Start Date Job End Date Not on file Not on file Not on file Not on file documented as of this encounter Plan of Treatment Upcoming Encounters Date Type Department Care Team (Late st Contact Info) Description 07/22/2025 1:30 PM DISPLAY SPECIALIST Office Visit [facility] eld [address] [place] [address] Jennifer Posada APRN, RESEARCH QUALITY ASSURANCE SPECIALIST-C [address] [facility] [address] [place] [address] documented as of this encounter Visit Diagnoses Not on filedocumented in this encounter Care Teams Credit Assessment Analyst Relationship Specialty Start Date End Date Andrew Giles DO [address] [place] [address] PCP - General FAMILY PRACTICE 12/31/20 Ky Sandoval MD [place] Dray Driver CARDIOVASCULAR DISEASE 08/13/19 03/29/24 Jennifer Posada APRN, RESEARCH QUALITY ASSURANCE SPECIALIST-C [address] [facility] [address] [place] [address] NURSE PRACTITIONER 03/30/24 Ritchie Forrester MD [address] [facility] [address] [place] [address] Consulting Physician INTERVENTIONAL CARDIOLOGY 07/24/24 documented as of this encounter
--- OUTSIDE RECORDS SUMMARY | 2024-11-13 09:52 | XMS_ITS | Encounter Summary ---
Author Organization [facility] Address [address] [place] [address] Care Team Providers Care Automation Qa Tester Name Role Phone Ky Sandoval MD Unavailable [facility] Teo Burns MD Primary Care Provider [phone] Andrew Giles DO Primary Care Provider [phone] Jennifer Posada APRN, AUTOMOTIVE REFINISH TECHNICIAN-C Unavailable Ritchie Forrester MD Unavailable [phone] Encounter Details Date Type Department Care Team (Late Contact Info) Description 09/06/2019 Prep for Procedure [place] Machine Feeder Pre/Post [address] [place] [address] Ky Sandoval MD Social History Tobacco Use Types Packs/Day Years Used Date Smoking Tobacco: Former Smokeless Tobacco: Never Alcohol Use Standard Drinks/Week Comments Yes 0 (1 standard drink = 0.6 oz pur e alcohol) 2 per day or every other day Sex and Gender Information Value Date Recorded Sex Assigned at Not on file Legal Sex Male 9:56 AM HOE RUNNER Gender Identity Male 09/14/2021 1:55 PM HOE RUNNER Sexual Orientation Straight 09/14/2021 1: 55 PM HOE RUNNER documented as of this encounter Plan of Treatment Upcoming Encounters Date Type Department Care Team (Late Contact Info) Description 07/22/2025 1:30 PM HOE RUNNER Office Visit [facility] [address] [place] [address] Jennifer Posada APRN, AUTOMOTIVE REFINISH TECHNICIAN-C [address] [facility] [address] [place] [address] documented as of this encounter Visit Diagnoses Not on filedocumented in this encounter Care Teams Automation Qa Tester Relationship Specialty Start Date End Date Teo Hargrove MD [address] [place] [address] PCP - General FAMILY PRACTICE 08/28/19 12/30/20 Andrew Giles DO [address] [place] [address] PCP - General FAMILY PRACTICE 12/31/20 Ky Sandoval MD [place] Spring Clipper CARDIOVASCULAR DISEASE 08/13/19 03/29/24 Jennifer Posada APRN, AUTOMOTIVE REFINISH TECHNICIAN-C [address] [facility] [address] [place] [address] NURSE PRACTITIONER 03/30/24 Ritchie Forrester MD [address] [facility] [address] [place] [address] Consulting Physician INTERVENTIONAL CARDIOLOGY 07/24/24 documented as of this encounter
--- OUTSIDE RECORDS SUMMARY | 2024-11-13 09:52 | XMS_ITS | Encounter Summary ---
Author Organization [facility] Address [facility] [place] [address] Care Team Providers Care Cashier Parking Lot Name Role Phone Anujasommer Andrew DEE Primary Care Provider Jennifer Posada APRN, REGISTERED VETERINARY TECHNICIAN-C Unavailable Ritchie Forrester MD Unavailable Encounter Details Date Type Department Care Team ([facility] st Contact Info) Description 11/13/2024 4Tech Message Enc [place] [facility] [address] [place] [address] Jennifer Posada APRN, REGISTERED VETERINARY TECHNICIAN-C [address] [facility] [address] [place] [address] K[facility] Mobile EKG Social History Tobacco Use Types Packs/Day Years Used Date Smoking Tobacco: Former Smokeless Tobacco: Never Alcohol Use Standard Drinks/Week Comments Yes 0 (1 standard drink = 0.6 oz pur e alcohol) weekends Sex and Gender Information Value Date Recorded Sex Assigned at Not on file Legal Sex Male 9:56 AM LEGAL TECHNICIAN Gender Identity Male 09/14/2021 1:55 PM LEGAL TECHNICIAN Sexual Orientation Straight 09/14/2021 1: 55 PM LEGAL TECHNICIAN Occupation Industry Job Start Date Job End Date Not on file Not on file Not on file Not on file documented as of this encounter Plan of Treatment Upcoming Encounters Date Type Department Care Team (Late st Contact Info) Description 07/22/2025 1:30 PM LEGAL TECHNICIAN Office Visit [facility] el [address] [place] [phone] Jennifer Posada APRN, REGISTERED VETERINARY TECHNICIAN-C [address] [address] documented as of this encounter Visit Diagnoses Not on filedocumented in this encounter Care Teams Cashier Parking Lot Relationship Specialty Start Date End Date Andrew Giles DO [address] [place] [address] PCP - General FAMILY PRACTICE 12/31/20 Jennifer Posada APRN, REGISTERED VETERINARY TECHNICIAN-C [address] [address] NURSE PRACTITIONER 03/30/24 Ritchie Forrester MD [address] [address] Consulting Physician INTERVENTIONAL CARDIOLOGY 07/24/24 documented as of this encounter
[2024-11-13 09:59] LABS: D Dimer 0.19 mg/L (0.19-0.50); Partial Thromboplastin Time 27.5 Sec (23.9-30.70); Prothrombin Time 11.3 Seconds (9.50-12.1)
[2024-11-13 10:16] LABS: Alanine Aminotransferase 29 U/L (16-63); Albumin Level 4.1 g/dL (3.4-5.0); Alkaline Phosphatase 90 U/L (46-116); Anion Gap 9 mmol/L (4-12); Aspartate Amino Transferase 23 U/L (15-37); Bilirubin,Total 0.7 mg/dL (0.00-1.00); Blood Urea Nitrogen 15 mg/dL (7-18); Calcium 8.9 mg/dL (8.5-10.1); Carbon Dioxide 26 mmol/L (21-32); Chloride 103 mmol/L (98-108); Estimated CRCL calculation 67 ml/min; Estimated Glomerular Filt Rate > 60; Glucose 167 mg/dL (70-99); Lipase 19 U/L (16-77); Osmolality Calculated 290 mOsm/kg (285-295); Sodium 138 mmol/L (136-145); Total Protein 6.9 g/dL (6.4-8.2); Troponin I 5.5 ng/L (0.00-60.4)
[2024-11-13 10:20] VITALS: PULSE 71
[2024-11-13 10:21] LABS: NT Pro B Type Natriuretic Pept 33 pg/mL (0-125)
--- OUTSIDE RECORDS SUMMARY | 2024-11-13 11:09 | XMS_ITS | Encounter Summary ---
Author Organization [facility] Address [facility] [place] [address] Care Team Providers Care Hoist Mechanic Name Role Phone Ky Sandoval MD Unavailable Unavailabl e Andrew Giles DO Primary Care Provider [phone] Jennifer Posada APRN, PRIMARY SPECIAL EDUCATION TEACHER-C Unavailable Ritchie Forrester MD Unavailable [phone] Encounter Details Date Type Department Care Team (Latest Contact Info) Description 06/02/2023 Unigo Message Enc [place] [facility] [address] [place] [address] Jennifer Posada APRN, PRIMARY SPECIAL EDUCATION TEACHER-C [address] [facility] [address] [place] [address] Effect of weight loss on prescriptions Social History Tobacco Use Types Packs/Day Years Used Date Smoking Tobacco: Former Smokeless Tobacco: Never Alcohol Use Standard Drinks/Week Comments Yes 0 (1 standard drink = 0.6 oz pur e alcohol) weekends Sex and Gender Information Value Date Recorded Sex Assigned at Not on file Legal Sex Male 9:56 AM INSPECTOR SCREEN PRINTING Gender Identity Male 09/14/2021 1:55 PM INSPECTOR SCREEN PRINTING Sexual Orientation Straight 09/14/2021 1: 55 PM INSPECTOR SCREEN PRINTING Occupation Industry Job Start Date Job End Date Not on file Not on file Not on file Not on file documented as of this encounter Plan of Treatment Upcoming Encounters Date Type Department Care Team (Late st Contact Info) Description 07/22/2025 1:30 PM INSPECTOR SCREEN PRINTING Office Visit [facility] eld [address] [place] [address] Jennifer Posada APRN, PRIMARY SPECIAL EDUCATION TEACHER-C [address] [facility] [address] [place] [address] documented as of this encounter Visit Diagnoses Not on filedocumented in this encounter Care Teams Hoist Mechanic Relationship Specialty Start Date End Date Andrew Giles DO [address] [place] [address] PCP - General FAMILY PRACTICE 12/31/20 Ky Sandoval MD [place] Asbestos Coverer CARDIOVASCULAR DISEASE 08/13/19 03/29/24 Jennifer Posada APRN, PRIMARY SPECIAL EDUCATION TEACHER-C [address] [facility] [address] [place] [address] NURSE PRACTITIONER 03/30/24 Ritchie Forrester MD [address] [facility] [address] [place] [address] Consulting Physician INTERVENTIONAL CARDIOLOGY 07/24/24 documented as of this encounter
--- OUTSIDE RECORDS SUMMARY | 2024-11-13 11:09 | XMS_ITS | Encounter Summary ---
Author Organization [facility] Address [address] [place] [address] Care Team Providers Care Sprinkler Irrigation Equipment Mechanic Name Role Phone Ky Sandoval MD Unavailable [facility] Teo Burns MD Primary Care Provider [phone] Andrew Giles DO Primary Care Provider [phone] Jennifer Posada APRN, COMMUNITY HEALTH OUTREACH WORKER-C Unavailable [phone] Ritchie Forrester MD Unavailable [phone] Encounter Details Date Type Department Care Team (Late Contact Info) Description 09/06/2019 Prep for Procedure [place] Credit Charge Authorizer Pre/Post [address] [place] [address] Ky Sandoval MD Social History Tobacco Use Types Packs/Day Years Used Date Smoking Tobacco: Former Smokeless Tobacco: Never Alcohol Use Standard Drinks/Week Comments Yes 0 (1 standard drink = 0.6 oz pur e alcohol) 2 per day or every other day Sex and Gender Information Value Date Recorded Sex Assigned at Not on file Legal Sex Male 9:56 AM LOAN UNDERWRITER Gender Identity Male 09/14/2021 1:55 PM LOAN UNDERWRITER Sexual Orientation Straight 09/14/2021 1: 55 PM LOAN UNDERWRITER documented as of this encounter Plan of Treatment Upcoming Encounters Date Type Department Care Team (Late Contact Info) Description 07/22/2025 1:30 PM LOAN UNDERWRITER Office Visit [facility] [address] [place] [address] Jennifer Posada APRN, COMMUNITY HEALTH OUTREACH WORKER-C [address] [facility] [address] [place] [address] documented as of this encounter Visit Diagnoses Not on filedocumented in this encounter Care Teams Sprinkler Irrigation Equipment Mechanic Relationship Specialty Start Date End Date Teo Hargrove MD [address] [place] [address] PCP - General FAMILY PRACTICE 08/28/19 12/30/20 Andrew Giles DO [address] [place] [address] PCP - General FAMILY PRACTICE 12/31/20 Ky Sandoval MD [place] Licensed Nuclear Operator CARDIOVASCULAR DISEASE 08/13/19 03/29/24 Jennifer Posada APRN, COMMUNITY HEALTH OUTREACH WORKER-C [address] [facility] [address] [place] [address] NURSE PRACTITIONER 03/30/24 Ritchie Forrester MD [address] [facility] [address] [place] [address] Consulting Physician INTERVENTIONAL CARDIOLOGY 07/24/24 documented as of this encounter
--- OUTSIDE RECORDS SUMMARY | 2024-11-13 11:09 | XMS_ITS | Encounter Summary ---
Author Organization [facility] Address [facility] [place] [address] Care Team Providers Care Household Chores Name Role Phone Anujasommer Andrew DEE Primary Care Provider [phone] Jennifer Posada APRN, GENERAL MACHINIST-C Unavailable Ritchie Forrester MD Unavailable [phone] Encounter Details Date Type Department Care Team ([facility] Contact Info) Description 07/24/2024 Sports[employer] Message Enc [place] [facility] [address] [place] [address] Jennifer Posada APRN, GENERAL MACHINIST-C [address] [facility] [address] [place] [address] Your requested information Social History Tobacco Use Types Packs/Day Years Used Date Smoking Tobacco: Former Smokeless Tobacco: Never Alcohol Use Standard Drinks/Week Comments Yes 0 (1 standard drink = 0.6 oz pur e alcohol) weekends Sex and Gender Information Value Date Recorded Sex Assigned at Not on file Legal Sex Male 9:56 AM COTTON PULLER Gender Identity Male 09/14/2021 1:55 PM COTTON PULLER Sexual Orientation Straight 09/14/2021 1: 55 PM COTTON PULLER Occupation Industry Job Start Date Job End Date Not on file Not on file Not on file Not on file documented as of this encounter Plan of Treatment Upcoming Encounters Date Type Department Care Team ([facility] st Contact Info) Description 07/22/2025 1:30 PM COTTON PULLER Office Visit [facility] el [address] [place] [address] Jennifer Posada APRN, GENERAL MACHINIST-C [address] [phone] documented as of this encounter Visit Diagnoses Not on filedocumented in this encounter Care Teams Household Chores Relationship Specialty Start Date End Date Andrew Giles DO [address] [place] [address] PCP - General FAMILY PRACTICE 12/31/20 Jennifer Posada APRN, GENERAL MACHINIST-C [address] [address] NURSE PRACTITIONER 03/30/24 Ritchie Forrester MD [address] [address] Consulting Physician INTERVENTIONAL CARDIOLOGY 07/24/24 documented as of this encounter
--- OUTSIDE RECORDS SUMMARY | 2024-11-13 11:09 | XMS_ITS | Encounter Summary ---
Author Organization [facility] Address [facility] [place] [address] Care Team Providers Care Product Demonstrator Name Role Phone Ky Sandoval MD Unavailable Unavailabl e Andrew Giles DO Primary Care Provider Jennifer Posada APRN, AUTOMOTIVE PARTS COUNTER ASSOCIATE-C Unavailable Ritchie Forrester MD Unavailable [phone] Encounter Details Date Type Department Care Team (Late st Contact Info) Description 06/16/2023 Natero Message Enc [facility] ield [address] [place] [address] Jennifer Posada APRN, AUTOMOTIVE PARTS COUNTER ASSOCIATE-C [address] [facility] [address] [place] [address] refill request Social History Tobacco Use Types Packs/Day Years Used Date Smoking Tobacco: Former Smokeless Tobacco: Never Alcohol Use Standard Drinks/Week Comments Yes 0 (1 standard drink = 0.6 oz pur e alcohol) weekends Sex and Gender Information Value Date Recorded Sex Assigned at Not on file Legal Sex Male 9:56 AM BORING MACHINE OPERATOR VERTICAL Gender Identity Male 09/14/2021 1:55 PM BORING MACHINE OPERATOR VERTICAL Sexual Orientation Straight 09/14/2021 1: 55 PM BORING MACHINE OPERATOR VERTICAL Occupation Industry Job Start Date Job End Date Not on file Not on file Not on file Not on file documented as of this encounter Plan of Treatment Upcoming Encounters Date Type Department Care Team (Late st Contact Info) Description 07/22/2025 1:30 PM BORING MACHINE OPERATOR VERTICAL Office Visit [facility] eld [address] [place] [address] Jennifer Posada APRN, AUTOMOTIVE PARTS COUNTER ASSOCIATE-C [address] [facility] [address] [place] [address] documented as of this encounter Visit Diagnoses Not on filedocumented in this encounter Care Teams Product Demonstrator Relationship Specialty Start Date End Date Andrew Giles DO [address] [place] [address] PCP - General FAMILY PRACTICE 12/31/20 Ky Sandoval MD [place] Financial Administration Officer CARDIOVASCULAR DISEASE 08/13/19 03/29/24 Jennifer Posada APRN, AUTOMOTIVE PARTS COUNTER ASSOCIATE-C [address] [facility] [address] [place] [address] NURSE PRACTITIONER 03/30/24 Ritchie Forrester MD [address] [facility] [address] [place] [address] Consulting Physician INTERVENTIONAL CARDIOLOGY 07/24/24 documented as of this encounter
--- OUTSIDE RECORDS SUMMARY | 2024-11-13 11:09 | XMS_ITS | Encounter Summary ---
Author Organization [facility] Address [facility] [place] [address] Care Team Providers Care Orthodontic Treatment Coordinator Name Role Phone Anujasommer Andrew DEE Primary Care Provider Jennifer Posada APRN, MECHANICAL METER TESTER-C Unavailable Ritchie Forrester MD Unavailable Encounter Details Date Type Department Care Team ([facility] st Contact Info) Description 11/13/2024 Graze Message Enc [facility] [address] [place] [address] Jennifer Posada APRN, MECHANICAL METER TESTER-C [address] [facility] [address] [place] [address] Kardia Mobile EKG Social History Tobacco Use Types Packs/Day Years Used Date Smoking Tobacco: Former Smokeless Tobacco: Never Alcohol Use Standard Drinks/Week Comments Yes 0 (1 standard drink = 0.6 oz pur e alcohol) weekends Sex and Gender Information Value Date Recorded Sex Assigned at Not on file Legal Sex Male 9:56 AM BODY SERVICE TEAM MEMBER Gender Identity Male 09/14/2021 1:55 PM BODY SERVICE TEAM MEMBER Sexual Orientation Straight 09/14/2021 1: 55 PM BODY SERVICE TEAM MEMBER Occupation Industry Job Start Date Job End Date Not on file Not on file Not on file Not on file documented as of this encounter Plan of Treatment Upcoming Encounters Date Type Department Care Team (Late st Contact Info) Description 07/22/2025 1:30 PM BODY SERVICE TEAM MEMBER Office Visit [facility] el [address] [place] [address] Jennifer Posada APRN, MECHANICAL METER TESTER-C [address] [address] documented as of this encounter Visit Diagnoses Not on filedocumented in this encounter Care Teams Orthodontic Treatment Coordinator Relationship Specialty Start Date End Date Andrew Giles DO [address] [place] [address] PCP - General FAMILY PRACTICE 12/31/20 Jennifer Posada APRN, MECHANICAL METER TESTER-C [address] [address] NURSE PRACTITIONER 03/30/24 Ritchie Forrester MD [address] [address] Consulting Physician INTERVENTIONAL CARDIOLOGY 07/24/24 documented as of this encounter
--- OUTSIDE RECORDS SUMMARY | 2024-11-13 11:09 | XMS_ITS | Encounter Summary ---
Author Organization [facility] Address [facility] [place] [address] Care Team Providers Care Torch Shearer Name Role Phone Ky Sandoval MD Unavailable Unavailabl e Andrew Giles DO Primary Care Provider Jennifer Posada APRN MAINFRAME DEVELOPER-C Unavailable Ritchie Forrester MD Unavailable [phone] Encounter Details Date Type Department Care Team (Late st Contact Info) Description 08/02/2023 MyChart Message Enc [facility] [address] [place] [phone] Ky Sandoval MD Blood Pressure readings after medicine change Social History Tobacco Use Types Packs/Day Years Used Date Smoking Tobacco: Former Smokeless Tobacco: Never Alcohol Use Standard Drinks/Week Comments Yes 0 (1 standard drink = 0.6 oz pur e alcohol) weekends Sex and Gender Information Value Date Recorded Sex Assigned at Not on file Legal Sex Male 9:56 AM LIGHTER CAPTAIN Gender Identity Male 09/14/2021 1:55 PM LIGHTER CAPTAIN Sexual Orientation Straight 09/14/2021 1: 55 PM LIGHTER CAPTAIN Occupation Industry Job Start Date Job End Date Not on file Not on file Not on file Not on file documented as of this encounter Plan of Treatment Upcoming Encounters Date Type Department Care Team (Late st Contact Info) Description 07/22/2025 1:30 PM LIGHTER CAPTAIN Office Visit [facility] [address] [place] [address] Jennifer Posada APRN, MAINFRAME DEVELOPER-C [address] [facility] [address] [place] [address] documented as of this encounter Visit Diagnoses Not on filedocumented in this encounter Care Teams Torch Shearer Relationship Specialty Start Date End Date Andrew Giles DO [address] [place] [address] PCP - General FAMILY PRACTICE 12/31/20 Ky Sandoval MD [place] Composing Room Supervisor CARDIOVASCULAR DISEASE 08/13/19 03/29/24 Jennifer Posada APRN, MAINFRAME DEVELOPER-C [address] [facility] [address] [place] [address] NURSE PRACTITIONER 03/30/24 Ritchie Forrester MD [address] [facility] [address] [place] [address] Consulting Physician INTERVENTIONAL CARDIOLOGY 07/24/24 documented as of this encounter
--- OUTSIDE RECORDS SUMMARY | 2024-11-13 11:09 | XMS_ITS | Clinical Summary ---
Author Organization [facility] Address [address] [place] [address] Care Team Providers Care Resource Economist Name Role Phone AnujaAndrew novoa Primary Care Provider [phone] Jennifer Posada APRN AGER OPERATORMilagrosC Unavailable Ritchie Forrester MD Unavailable Allergies Active [...] artery disease DM (diabetes mellitus), type 2 ([facility]) Hypertension Encounters Date Type Department Care Team Description 11/13/2024 MyChart Message Enc [facility] [address] [place] [address] Jennifer Posada, MAYITO, WILMAC Alfie Mobile EKG from Last 3 Months [...] on file Legal Sex Male 9:56 AM COLD ROLLING COORDINATOR Gender Identity Male 09/14/2021 1:55 PM COLD ROLLING COORDINATOR Sexual Orientation Straight 09/14/2021 1: 55 PM COLD ROLLING COORDINATOR Occupation Industry Job Start Date Job End Date Not on file Not on file Not on file Not on file Last Filed Vital Signs Vital Sign Reading Time Taken Comments Blood Pressure 116/74 07/23/2024 2:04 PM COLD ROLLING COORDINATOR Pulse 61 07/23/2024 2:04 PM COLD ROLLING COORDINATOR Temperature 36.7 C (98.1 F) 02/14/2023 11:15 AM CDT Respiratory Rate 18 07/23/2024 2:04 PM COLD ROLLING COORDINATOR Oxygen Saturation 98% 07/23/2024 2:04 PM COLD ROLLING COORDINATOR Inhaled Oxygen Concentration - - Weight 86.2 kg (190 lb) 07/23/2024 2:04 PM COLD ROLLING COORDINATOR Height 177.8 cm (5' 10 ) 07/23/2024 2:04 PM COLD ROLLING COORDINATOR Body Mass Index 27.26 07/23/2024 2:04 PM COLD ROLLING COORDINATOR Plan of Treatment Upcoming Encounters Date Type Department Care Team (Late st Contact Info) Description 07/22/2025 1:30 PM COLD ROLLING COORDINATOR Office Visit [facility] eld [address] [place] [address] Jennifer Posada, INDUSTRIAL ENGINEERING MANAGER, AGER OPERATOR-C [address] [facility] [address] [place] [address] Health Maintenance Due Date Last Done Comments [...] Most Recently Relevant to Health Maintenance Insurance [employer]-[facility] Advance Directives * Full Code (Latest Code Status on File) Date Activated Date Inactivated Comments 09/17/2019 4:43 PM 09/17/2019 8:20 PM Care Teams Resource Economist Relationship Specialty Start Date End Date Andrew Giles DO [address] [place] [address] PCP - General FAMILY PRACTICE 12/31/20 Jennifer Posada, MAYITO, AGER OPERATOR-C [address] [facility] [address] [place] [address] NURSE PRACTITIONER 03/30/24 Ritchie Forrester MD [address] [facility] [address] [place] [address] Consulting Physician INTERVENTIONAL CARDIOLOGY 07/24/24
[2024-11-13 11:19] VITALS: PULSE 78
[2024-11-13 12:19] LABS: Troponin I 6.9 ng/L (0.00-60.4)
[2024-11-13 12:30] VITALS: PULSE 72
[2024-11-13 13:00] VITALS: PULSE 69
== END 2024-11-13 13:08 | disposition home or self-care (01) ==
PROVIDERS: Emergency Provider Emergency Medicine; PCP Family Medicine
DX: R07.2 Precordial pain (principal); E78.5 Hyperlipidemia, unspecified; I25.10 Atherosclerotic heart disease of native coronary artery without angina pectoris; I12.9 Hypertensive chronic kidney disease with stage 1 through stage 4 chronic kidney disease, or unspecified chronic kidney disease; E11.22 Type 2 diabetes mellitus with diabetic chronic kidney disease; N18.9 Chronic kidney disease, unspecified
CPT/HCPCS: 36415; 71045; 80053; 83690; 83880; 84484; 85025; 85380; 85610; 85730; 93005; 99284

== ENCOUNTER 2025-03-25 15:09 | Outpatient (CLI) | payer OTHER, SELFPAY ==
--- NOTE | ~2025-03-25 | XR_ITS ---
Exam: X-ray abdomen/KUB one view CLINICAL HISTORY: Unspecified abdominal pain. TECHNIQUE: 3 images of the abdomen were obtained. COMPARISON: None available. FINDINGS: Moderate amount of air and stool in nondilated large bowel. Small amount of air in minimally distende d small bowel in the left upper abdomen. No abnormal calcifications in the abdomen or pelvis. Cholecy stectomy clips are noted. There is a 1.1 cm calcified granuloma or vessel on end in the medial aspect of the left lower lung. IMPRESSION: 1. Nonspecific abdomen with a moderate amount of stool. If symptoms persist or worsen, consider a CT of the abdomen and pelvis for further assessment. Reviewed, dictated and finalized at location A.
--- OUTSIDE RECORDS SUMMARY | 2025-03-25 15:19 | XMS_ITS | Encounter Summary ---
Author Organization [facility] Address [facility] [place] [address] Care Team Providers Care Personal Secretary Name Role Phone Ky Sandoval MD Unavailable [phone] Andrew Giles DO Primary Care Provider [phone] Jennifer Posada APRN, MARKER MAKER-C Unavailable Ritchie Forrester MD Unavailable Encounter Details Date Type Department Care Team (Late st Contact Info) Description 06/16/2023 Welcome Funds Message Enc [place] [facility] ield [address] [place] [address] Jennifer Posada APRN, MARKER MAKER-C [address] [facility] [address] [place] [address] refill request Social History Tobacco Use Types Packs/Day Years Used Date Smoking Tobacco: Former Smokeless Tobacco: Never Alcohol Use Standard Drinks/Week Comments Yes 0 (1 standard drink = 0.6 oz pur e alcohol) weekends Sex and Gender Information Value Date Recorded Sex Assigned at Male 11/21/2024 7:24 AM CDT Legal Sex Male 9:56 AM IMAGING SYSTEM ADMINISTRATOR Gender Identity Male 09/14/2021 1:55 PM IMAGING SYSTEM ADMINISTRATOR Sexual Orientation Straight 09/14/2021 1: 55 PM IMAGING SYSTEM ADMINISTRATOR Occupation Industry Job Start Date Job End Date Not on file Not on file Not on file Not on file documented as of this encounter Plan of Treatment Upcoming Encounters Date Type Department Care Team (Late st Contact Info) Description 07/22/2025 1:30 PM IMAGING SYSTEM ADMINISTRATOR Office Visit [facility] eld [address] [place] [address] Jennifer Posada APRN, MARKER MAKER-C [address] [phone] documented as of this encounter Visit Diagnoses Not on filedocumented in this encounter Care Teams Personal Secretary Relationship Specialty Start Date End Date Andrew Giles DO [address] [place] [address] PCP - General FAMILY PRACTICE 12/31/20 Ky Sandoval MD [address] [place] [address] [place] Associate Professor Of Chemistry CARDIOVASCULAR DISEASE 08/13/19 03/29/24 Jennifer Posada APRN, MARKER MAKER-C [address] [address] NURSE PRACTITIONER 03/30/24 Ritchie Forrester MD [address] [phone] Consulting Physician INTERVENTIONAL CARDIOLOGY 07/24/24 documented as of this encounter
--- OUTSIDE RECORDS SUMMARY | 2025-03-25 15:19 | XMS_ITS | Encounter Summary ---
Author Organization [facility] Address [facility] [place] [address] Care Team Providers Care Public Relations Director Name Role Phone Ky Sandoval MD Unavailable [phone] Teo Hargrove MD Primary Care Provider [phone] Andrew Giles DO Primary Care Provider [phone] Jennifer Posada APRN, SPECIALTY SALES REPRESENTATIVE-C Unavailable Ritchie Forrester MD Unavailable [phone] Encounter Details Date Type Department Care Team (Late st Contact Info) Description 09/06/2019 Prep for Procedure [place] [employer] [address] [place], [place] [address] Ky Sandoval MD [address] [place] [address] Social History Tobacco Use Types Packs/Day Years Used Date Smoking Tobacco: Former Smokeless Tobacco: Never Alcohol Use Standard Drinks/Week Comments Yes 0 (1 standard drink = 0.6 oz pur e alcohol) 2 per day or every other day Sex and Gender Information Value Date Recorded Sex Assigned at Male 11/21/2024 7:24 AM CDT Legal Sex Male 9:56 AM SERVICE SUPPORT REPRESENTATIVE Gender Identity Male 09/14/2021 1:55 PM SERVICE SUPPORT REPRESENTATIVE Sexual Orientation Straight 09/14/2021 1: 55 PM SERVICE SUPPORT REPRESENTATIVE documented as of this encounter Plan of Treatment Upcoming Encounters Date Type Department Care Team (Late st Contact Info) Description 07/22/2025 1:30 PM SERVICE SUPPORT REPRESENTATIVE Office Visit [facility] [address] [place] [address] Jennifer Posada APRN, SPECIALTY SALES REPRESENTATIVE-C [address] [phone] documented as of this encounter Visit Diagnoses Not on filedocumented in this encounter Care Teams Public Relations Director Relationship Specialty Start Date End Date Teo Hargrove MD [address] [place] [address] PCP - General FAMILY PRACTICE 08/28/19 12/30/20 Andrew Giles DO [address] [place] [address] PCP - General FAMILY PRACTICE 12/31/20 Ky Sandoval MD [address] [place] [address] [place] Business Applications Specialist CARDIOVASCULAR DISEASE 08/13/19 03/29/24 Jnenifer Posada APRN, SPECIALTY SALES REPRESENTATIVE-C [address] [phone] NURSE PRACTITIONER 03/30/24 Ritchie Forrester MD [address] [phone] Consulting Physician INTERVENTIONAL CARDIOLOGY 07/24/24 documented as of this encounter
--- OUTSIDE RECORDS SUMMARY | 2025-03-25 15:19 | XMS_ITS | Encounter Summary ---
Author Organization [facility] Address [facility] [place] [address] Care Team Providers Care General Counsel Name Role Phone AnujasommerAndrew DO Primary Care Provider [phone] Jennifer Posada APRN, AUTO DEALER-C Unavailable Ritchie Forrester MD Unavailable [phone] Encounter Details Date Type Department Care Team (Late st Contact Info) Description 11/13/2024 [place] Message Enc [place] [facility] [address] [place] [address] Jennifer Posada APRN, AUTO DEALER-C [address] [facility] [address] [place] [address] Kardia Mobile EKG Social History Tobacco Use Types Packs/Day Years Used Date Smoking Tobacco: Former Smokeless Tobacco: Never Alcohol Use Standard Drinks/Week Comments Yes 0 (1 standard drink = 0.6 oz pur e alcohol) weekends Sex and Gender Information Value Date Recorded Sex Assigned at Male 11/21/2024 7:24 AM CDT Legal Sex Male 9:56 AM HOSPITAL DIRECTOR Gender Identity Male 09/14/2021 1:55 PM HOSPITAL DIRECTOR Sexual Orientation Straight 09/14/2021 1: 55 PM HOSPITAL DIRECTOR Occupation Industry Job Start Date Job End Date Not on file Not on file Not on file Not on file documented as of this encounter Plan of Treatment Upcoming Encounters Date Type Department Care Team (Late st Contact Info) Description 07/22/2025 1:30 PM HOSPITAL DIRECTOR Office Visit [facility] el [address] [place] [address] Jennifer Posada APRN, AUTO DEALER-C [address] [address] documented as of this encounter Visit Diagnoses Not on filedocumented in this encounter Care Teams General Counsel Relationship Specialty Start Date End Date Andrew Giles DO [address] [place] [address] PCP - General FAMILY PRACTICE 12/31/20 Jennifer Posada APRN, AUTO DEALER-C [address] [phone] NURSE PRACTITIONER 03/30/24 Ritchie Forrester MD [address] [phone] Consulting Physician INTERVENTIONAL CARDIOLOGY 07/24/24 documented as of this encounter
--- OUTSIDE RECORDS SUMMARY | 2025-03-25 15:19 | XMS_ITS | Encounter Summary ---
Author Organization [facility] Address [facility] [place] [address] Care Team Providers Care Employment Specialist/Program Manager Name Role Phone Ky Sandoval MD Unavailable [phone] Andrew Giles DO Primary Care Provider Jennifer Posada APRN, CUTTER MACHINE TENDER-C Unavailable Ritchie Forrester MD Unavailable Encounter Details Date Type Department Care Team (Latest Contact Info) Description 06/02/2023 [facility] Message Enc [place] [facility] [address] [place] [address] Jennifer Posada APRN, CUTTER MACHINE TENDER-C [address] [facility] [address] [place] [address] Effect of weight loss on prescriptions Social History Tobacco Use Types Packs/Day Years Used Date Smoking Tobacco: Former Smokeless Tobacco: Never Alcohol Use Standard Drinks/Week Comments Yes 0 (1 standard drink = 0.6 oz pur e alcohol) weekends Sex and Gender Information Value Date Recorded Sex Assigned at Male 11/21/2024 7:24 AM CDT Legal Sex Male 9:56 AM BIOMEDICAL ENGINEERING TECHNOLOGIST Gender Identity Male 09/14/2021 1:55 PM BIOMEDICAL ENGINEERING TECHNOLOGIST Sexual Orientation Straight 09/14/2021 1: 55 PM BIOMEDICAL ENGINEERING TECHNOLOGIST Occupation Industry Job Start Date Job End Date Not on file Not on file Not on file Not on file documented as of this encounter Plan of Treatment Upcoming Encounters Date Type Department Care Team (Late st Contact Info) Description 07/22/2025 1:30 PM BIOMEDICAL ENGINEERING TECHNOLOGIST Office Visit [facility] el [address] [place] [address] Jennifer Posada APRN, CUTTER MACHINE TENDER-C [address] [address] documented as of this encounter Visit Diagnoses Not on filedocumented in this encounter Care Teams Employment Specialist/Program Manager Relationship Specialty Start Date End Date Andrew Giles DO [address] [place] [address] PCP - General FAMILY PRACTICE 12/31/20 Ky Sandoval MD [address] [place] [address] [place] Economic Research Analyst CARDIOVASCULAR DISEASE 08/13/19 03/29/24 Jennifer Posada APRN, CUTTER MACHINE TENDER-C [address] [address] NURSE PRACTITIONER 03/30/24 Ritchie Forrester MD [address] [phone] Consulting Physician INTERVENTIONAL CARDIOLOGY 07/24/24 documented as of this encounter
--- OUTSIDE RECORDS SUMMARY | 2025-03-25 15:20 | XMS_ITS | Clinical Summary ---
Author Organization [facility] Address [address] [place] [address] Care Team Providers Care Information Strategist Name Role Phone AnujaAndrew novoa Primary Care Provider [phone] Jennifer Posada APRN DUST MIXERMilagrosC Unavailable Ritchie Forrester MD Unavailable [phone] Allergies Active Allergy Reactions Criticality Noted Date [...] Take 1 tablet by mouth daily. Active fluticasone propionate (FLONASE) 50 MCG/ACT nasal spray 1 spray by Nasal route as needed. 4 Active valACYclovir (VALTREX) 500 MG tablet as needed. 4 Active MOUNJARO 5 MG/0.5ML injection Inject as directed once a week. 4 Active amLODIPine (NORVASC) 2.5 MG tabletIndications :Primary hypertension TAKE ONE TABLET BY MOUTH EVERY MORNING 90 tablet 3 Active Active Problems Problem Noted Date Diagnosed Date Hyperlipidemia 10/23/2019 [place] (obstructive sleep apnea) 09/03/2019 Erectile dysfunction due to arterial insufficien cy 09/03/2019 Coronary artery disease DM (diabetes mellitus), type 2 ([facility]) Hypertension Family History Medical History Relation Comments COPD [...] AM CDT Legal Sex Male 9:56 AM LACE CUTTER Gender Identity Male 09/14/2021 1:55 PM LACE CUTTER Sexual Orientation Straight 09/14/2021 1: 55 PM LACE CUTTER Occupation Industry Job Start Date Job End Date Not on file Not on file Not on file Not on file Last Filed Vital Signs Vital Sign Reading Time Taken Comments Blood Pressure 116/74 07/23/2024 2:04 PM LACE CUTTER Pulse 61 07/23/2024 2:04 PM LACE CUTTER Temperature 36.7 C (98.1 F) 02/14/2023 11:15 AM CDT Respiratory Rate 18 07/23/2024 2:04 PM LACE CUTTER Oxygen Saturation 98% 07/23/2024 2:04 PM LACE CUTTER Inhaled Oxygen Concentration - - Weight 86.2 kg (190 lb) 07/23/2024 2:04 PM LACE CUTTER Height 177.8 cm (5' 10) 07/23/2024 2:04 PM LACE CUTTER Body Mass Index 27.26 07/23/2024 2:04 PM LACE CUTTER Plan of Treatment Upcoming Encounters Date Type Department Care Team (Late st Contact Info) Description 07/22/2025 1:30 PM LACE CUTTER Office Visit [facility] [address] [place] [address] Jennifer Posada, ASPHALT ROLLER PERSON, DUST MIXER-C [address] [facility] [address] [place] [phone] Health Maintenance Due Date Last Done Comments ASCVD Statin 1968 Colorectal Cancer Screening Colonoscopy (10 Years) 1968 Kidney Health Evaluation 1968 Annual Physical 01/01/1972 Diabetes: Retinopathy Eye Exam 1986 Hepatitis C 1986 DTaP, Tdap and Td Vaccines (1 - Tdap) 01/01/1988 Hepatitis B Vaccines (1 of 3 - 19+ 3-dose series) 01/01/1988 Pneumococcal Vaccine: 50+ Years (1 of 2 - PCV) 01/01/1988 Zoster Vaccines (1 of 2) 2018 [...] Most Recently Relevant to Health Maintenance Insurance [employer] Advance Directives * Full Code (Latest Code Status on File) Date Activated Date Inactivated Comments 09/17/2019 4:43 PM 09/17/2019 8:20 PM Care Teams Information Strategist Relationship Specialty Start Date End Date Andrew Giles DO [address] [place] [address] PCP - General FAMILY PRACTICE 12/31/20 Jennifer Posada APRN, DUST MIXER-C [address] [facility] [address] [address] NURSE PRACTITIONER 03/30/24 Ritchie Forrester MD [address] [facility] [address] [address] Consulting Physician INTERVENTIONAL CARDIOLOGY 07/24/24
--- OUTSIDE RECORDS SUMMARY | 2025-03-25 15:20 | XMS_ITS | Encounter Summary ---
Author Organization [facility] Address [facility] [place] [address] Care Team Providers Care Run Lead Name Role Phone Ky Sandoval MD Unavailable Andrew Giles DO Primary Care Provider [phone] Jennifer Posada APRN, NP-C Unavailable Ritchie Forrester MD Unavailable Encounter Details Date Type Department Care Team (Late st Contact Info) Description 08/02/[address] [facility] [facility] [address] [place] [address] Ky Sandoval MD [address] [place] [address] Blood Pressure readings after medicine change Social History Tobacco Use Types Packs/Day Years Used Date Smoking Tobacco: Former Smokeless Tobacco: Never Alcohol Use Standard Drinks/Week Comments Yes 0 (1 standard drink = 0.6 oz pur e alcohol) weekends Sex and Gender Information Value Date Recorded Sex Assigned at Male 11/21/2024 7:24 AM CDT Legal Sex Male 9:56 AM LEADERSHIP DEVELOPMENT MANAGER Gender Identity Male 09/14/2021 1:55 PM LEADERSHIP DEVELOPMENT MANAGER Sexual Orientation Straight 09/14/2021 1: 55 PM LEADERSHIP DEVELOPMENT MANAGER Occupation Industry Job Start Date Job End Date Not on file Not on file Not on file Not on file documented as of this encounter Plan of Treatment Upcoming Encounters Date Type Department Care Team (Late st Contact Info) Description 07/22/2025 1:30 PM LEADERSHIP DEVELOPMENT MANAGER Office Visit [facility] [facility] eld [address] [place] [address] Jennifer Posada APRN, FOOD SERVICE SUPERVISOR-C [address] [phone] documented as of this encounter Visit Diagnoses Not on filedocumented in this encounter Care Teams Run Lead Relationship Specialty Start Date End Date Andrew Giles DO [address] [place] [address] PCP - General FAMILY PRACTICE 12/31/20 Ky Sandoval MD [address] [place] [phone] [place] Rockboard Lather CARDIOVASCULAR DISEASE 08/13/19 03/29/24 Jennifer Posada APRN, FOOD SERVICE SUPERVISOR-C [address] [phone] NURSE PRACTITIONER 03/30/24 Ritchie Forrester MD [address] [phone] Consulting Physician INTERVENTIONAL CARDIOLOGY 07/24/24 documented as of this encounter
--- OUTSIDE RECORDS SUMMARY | 2025-03-25 15:20 | XMS_ITS | Encounter Summary ---
Author Organization [facility] Address [facility]ly [facility], [facility] [place] [address] Care Team Providers Care Predatory Animal Trapper Name Role Phone AnujasommerAndrew DO Primary Care Provider Jennifer Posada APRN, SHANK TAPPER-C Unavailable Ritchie Forrester MD Unavailable [phone] Encounter Details Date Type Department Care Team ([facility] st Contact Info) Description 07/24/2024 [employer] Message Enc [place] [facility] [address] [place] [address] Jennifer Posada APRN, SHANK TAPPER-C [address] [facility] [address] [place] [address] Your requested information Social History Tobacco Use Types Packs/Day Years Used Date Smoking Tobacco: Former Smokeless Tobacco: Never Alcohol Use Standard Drinks/Week Comments Yes 0 (1 standard drink = 0.6 oz pur e alcohol) weekends Sex and Gender Information Value Date Recorded Sex Assigned at Male 11/21/2024 7:24 AM CDT Legal Sex Male 9:56 AM AGRICULTURAL MECHANIC Gender Identity Male 09/14/2021 1:55 PM AGRICULTURAL MECHANIC Sexual Orientation Straight 09/14/2021 1: 55 PM AGRICULTURAL MECHANIC Occupation Industry Job Start Date Job End Date Not on file Not on file Not on file Not on file documented as of this encounter Plan of Treatment Upcoming Encounters Date Type Department Care Team (Late st Contact Info) Description 07/22/2025 1:30 PM AGRICULTURAL MECHANIC Office Visit [facility] el [address] [place] [phone] Jennifer Posada APRN, SHANK TAPPER-C [address] [phone] documented as of this encounter Visit Diagnoses Not on filedocumented in this encounter Care Teams Predatory Animal Trapper Relationship Specialty Start Date End Date Andrew Giles DO [address] [place] [address] PCP - General FAMILY PRACTICE 12/31/20 Jennifer Posada APRN, SHANK TAPPER-C [address] [phone] NURSE PRACTITIONER 03/30/24 Ritchie Forrester MD [address] [phone] Consulting Physician INTERVENTIONAL CARDIOLOGY 07/24/24 documented as of this encounter
[2025-03-25 15:30] LABS: Hematocrit 39.0 % (40.0-54.0); Hemoglobin 13.6 g/dL (14.0-18.0); Immature Granulocyte Percent A 0.3 % (0.0-0.0); Lymphocytes Absolute Auto 2.36 K/mm3 (1.10-4.50); Mean Corpuscular HGB Conc 34.9 g/dL (32-36); Mean Corpuscular Hemoglobin 29.9 pg (27.0-31.0); Mean Corpuscular Volume 85.7 fL (78.0-102.0); Nucleated Red Blood Cells Absolute Auto 0.00 K/mm3 (0.00-0.00); Nucleated Red Blood Cells Perc 0.0 % (0-0.0); Platelet Count Result 170 K/mm3 (150-420); Red Blood Count 4.55 M/mm3 (4.70-6.10); White Blood Count 6.5 K/mm3 (4.8-10.8)
[2025-03-25 15:43] LABS: Alanine Aminotransferase 21 U/L (6-50); Albumin Level 4.5 g/dL (3.5-5.1); Alkaline Phosphatase 71 U/L (38-126); Anion Gap 8 mmol/L (4-12); Aspartate Amino Transferase 31 U/L (17-59); Bilirubin,Total 0.7 mg/dL (0.2-1.3); Blood Urea Nitrogen 15 mg/dL (9-20); Calcium 9.5 mg/dL (8.4-10.2); Carbon Dioxide 26 mmol/L (22-30); Chloride 107 mmol/L (98-107); Estimated Glomerular Filt Rate > 60; Glucose 118 mg/dL (65-110); Osmolality Calculated 293 mOsm/kg (285-295); Potassium 4.0 mmol/L (3.4-5.0); Sodium 141 mmol/L (137-145); Total Protein 6.8 g/dL (6.3-8.2)
[2025-03-25 16:14] LABS: Prostate Specific Antigen 0.5 ng/mL (< OR = 4.0)
== END 2025-03-25 15:10 | disposition home or self-care (01) ==
LOC: CHSLAB 15:10
PROVIDERS: PCP Family Medicine; Visit Provider Nurse Practitioner Family
DX: R35.0 Frequency of micturition (principal); I10 Essential (primary) hypertension; R10.9 Unspecified abdominal pain
CPT/HCPCS: 36415; 74018; 80053; 84153; 85025; 85652

== ENCOUNTER 2025-04-03 12:46 | Outpatient (CLI) | payer OTHER, SELFPAY ==
--- NOTE | ~2025-04-03 | CT_ITS ---
EXAMINATION: CT abdomen pelvis wo con DATE: 04/03/2025 13:00 INDICATION: Right lower abdomen pain TECHNIQUE: Computed tomography (CT) of the abdomen and pelvis was performed without intravenous contrast. The dose-length product was 437.93 mGy-cm. Automated exposure control and iterative reconstruction technique were employed. COMPARISON: CT dated 08/05/2017 FINDINGS: Lung bases unremarkable. There is calcified granuloma left lower lobe. Heart size normal. No significant pleural or pericardial effusion. The liver, spleen, pancreas, adrenal glands and kidneys are unremarkable. Status post cholecystectomy. Bladder is unremarkable. Nonobstructive bowel gas pattern. Normal appendix. No significant vascular abnormality. No lymphadenopathy. Mild lumbar spondylosis. No acute osseous abnormality. IMPRESSION: 1. No acute abdominal abnormality. Reviewed, dictated and finalized at location A.
--- OUTSIDE RECORDS SUMMARY | 2025-04-03 12:50 | XMS_ITS | Encounter Summary ---
Author Organization [facility] Address [facility] [place] [address] Care Team Providers Care Foundation Assistant Name Role Phone Ky Sandoval MD Unavailable Andrew Giles DO Primary Care Provider [phone] Jennifer Posada APRN, NP-C Unavailable [phone] Ritchie Forrester MD Unavailable [phone] Encounter Details Date Type Department Care Team (Late st Contact Info) Description 08/02/2023 [employer] Message Enc [place] [facility] [address] [place] [address] Ky Sandoval MD [address] [place] [address] Blood Pressure readings after medicine change Social History Tobacco Use Types Packs/Day Years Used Date Smoking Tobacco: Former Smokeless Tobacco: Never Alcohol Use Standard Drinks/Week Comments Yes 0 (1 standard drink = 0.6 oz pur e alcohol) weekends Sex and Gender Information Value Date Recorded Sex Assigned at Male 11/21/2024 7:24 AM CDT Legal Sex Male 9:56 AM CLASS A LINEMAN Gender Identity Male 09/14/2021 1:55 PM CLASS A LINEMAN Sexual Orientation Straight 09/14/2021 1: 55 PM CLASS A LINEMAN Occupation Industry Job Start Date Job End Date Not on file Not on file Not on file Not on file documented as of this encounter Plan of Treatment Upcoming Encounters Date Type Department Care Team (Late st Contact Info) Description 07/22/2025 1:30 PM CLASS A LINEMAN Office Visit [facility] eld [address] [place] [phone] Jennifer Posada APRN, YARD LABORER-C [address] [phone] documented as of this encounter Visit Diagnoses Not on filedocumented in this encounter Care Teams Foundation Assistant Relationship Specialty Start Date End Date Andrew Giles DO [address] [place] [address] PCP - General FAMILY PRACTICE 12/31/20 Ky Sandoval MD [address] [place] [phone] [place] Laborer Salvage CARDIOVASCULAR DISEASE 08/13/19 03/29/24 Jennifer Posada APRN, YARD LABORER-C [address] [phone] NURSE PRACTITIONER 03/30/24 Ritchie Forrester MD [address] [phone] Consulting Physician INTERVENTIONAL CARDIOLOGY 07/24/24 documented as of this encounter
--- OUTSIDE RECORDS SUMMARY | 2025-04-03 12:50 | XMS_ITS | Clinical Summary ---
Author Organization [facility] Address [address] [place] [address] Care Team Providers Care Package Yarns Drying Machine Operator Name Role Phone AnujaAndrew novoa Primary Care Provider [phone] Jennifer Posada APRN LEAN COACHMilagrosC Unavailable Ritchie Forrester MD Unavailable [phone] Allergies Active Allergy Reactions Criticality Noted [...] artery disease DM (diabetes mellitus), type 2 ([facility]/HCC HHS/HCC) Hypertension Family History Medical History Relation [...] AM CDT Legal Sex Male 9:56 AM BAR TACKER SEWING MACHINE Gender Identity Male 09/14/2021 1:55 PM BAR TACKER SEWING MACHINE Sexual Orientation Straight 09/14/2021 1: 55 PM BAR TACKER SEWING MACHINE Occupation Industry Job Start Date Job End Date Not on file Not on file Not on file Not on file Last Filed Vital Signs Vital Sign Reading Time Taken Comments Blood Pressure 116/74 07/23/2024 2:04 PM BAR TACKER SEWING MACHINE Pulse 61 07/23/2024 2:04 PM BAR TACKER SEWING MACHINE Temperature 36.7 C (98.1 F) 02/14/2023 11:15 AM CDT Respiratory Rate 18 07/23/2024 2:04 PM BAR TACKER SEWING MACHINE Oxygen Saturation 98% 07/23/2024 2:04 PM BAR TACKER SEWING MACHINE Inhaled Oxygen Concentration - - Weight 86.2 kg (190 lb) 07/23/2024 2:04 PM BAR TACKER SEWING MACHINE Height 177.8 cm (5' 10) 07/23/2024 2:04 PM BAR TACKER SEWING MACHINE Body Mass Index 27.26 07/23/2024 2:04 PM BAR TACKER SEWING MACHINE Plan of Treatment Upcoming Encounters Date Type Department Care Team (Late st Contact Info) Description 07/22/2025 1:30 PM BAR TACKER SEWING MACHINE Office Visit [facility] [address] [place] [address] Jennifer Posada, RUN BOAT OPERATOR, LEAN COACH-C [address] [facility] [address] [place] [phone] Health Maintenance Due Date Last Done Comments [...] 4:43 PM 09/17/2019 8:20 PM Care Teams Package Yarns Drying Machine Operator Relationship Specialty Start Date End Date Andrew Giles DO [address] [place] [address] PCP - General FAMILY PRACTICE 12/31/20 Jennifer Posada APRN, LEAN COACH-C [address] [facility] [address] [address] NURSE PRACTITIONER 03/30/24 Ritchie Forrester MD [address] [facility] [address] [phone] Consulting Physician INTERVENTIONAL CARDIOLOGY 07/24/24
--- OUTSIDE RECORDS SUMMARY | 2025-04-03 12:50 | XMS_ITS | Encounter Summary ---
Author Organization [facility] Address [facility] [place] [address] Care Team Providers Care Front Desk Manager Name Role Phone AnujasommerAndrew DO Primary Care Provider Jennifer Posada APRN, SOLE ASSESSOR-C Unavailable Ritchie Forrester MD Unavailable [phone] Encounter Details Date Type Department Care Team (Late st Contact Info) Description 11/13/2024 Markr Message Enc [place] [facility] [address] [place] [address] Jennifer Posada APRN, SOLE ASSESSOR-C [address] [facility] [address] [place] [address] Kardia Mobile EKG Social History Tobacco Use Types Packs/Day Years Used Date Smoking Tobacco: Former Smokeless Tobacco: Never Alcohol Use Standard Drinks/Week Comments Yes 0 (1 standard drink = 0.6 oz pur e alcohol) weekends Sex and Gender Information Value Date Recorded Sex Assigned at Male 11/21/2024 7:24 AM CDT Legal Sex Male 9:56 AM COAL PASSER Gender Identity Male 09/14/2021 1:55 PM COAL PASSER Sexual Orientation Straight 09/14/2021 1: 55 PM COAL PASSER Occupation Industry Job Start Date Job End Date Not on file Not on file Not on file Not on file documented as of this encounter Plan of Treatment Upcoming Encounters Date Type Department Care Team (Late st Contact Info) Description 07/22/2025 1:30 PM COAL PASSER Office Visit [facility] el [address] [place] [address] Jennifer Posada APRN, SOLE ASSESSOR-C [address] [address] documented as of this encounter Visit Diagnoses Not on filedocumented in this encounter Care Teams Front Desk Manager Relationship Specialty Start Date End Date Andrew Giles DO [address] [place] [address] PCP - General FAMILY PRACTICE 12/31/20 Jennifer Posada APRN, SOLE ASSESSOR-C [address] [phone] NURSE PRACTITIONER 03/30/24 Ritchie Forrester MD [address] [phone] Consulting Physician INTERVENTIONAL CARDIOLOGY 07/24/24 documented as of this encounter
--- OUTSIDE RECORDS SUMMARY | 2025-04-03 12:50 | XMS_ITS | Encounter Summary ---
Author Organization [facility] Address Formerly [facility], [facility] [place] [address] Care Team Providers Care Ice Skating Coach Name Role Phone Ky Sandoval MD Unavailable Teo Hargrove MD Primary Care Provider [phone] Andrew Giles DO Primary Care Provider [phone] Jennifer Posada APRN, BOX WORKER-C Unavailable Ritchie Forrester MD Unavailable [phone] Encounter Details Date Type Department Care Team (Late st Contact Info) Description 09/06/2019 Prep for Procedure [place]ather Tanner Pre/Post [address] [place], [place] [address] Ky Sandoval MD [address] [place] [address] Social History Tobacco Use Types Packs/Day Years Used Date Smoking Tobacco: Former Smokeless Tobacco: Never Alcohol Use Standard Drinks/Week Comments Yes 0 (1 standard drink = 0.6 oz pur e alcohol) 2 per day or every other day Sex and Gender Information Value Date Recorded Sex Assigned at Male 11/21/2024 7:24 AM CDT Legal Sex Male 9:56 AM DRILL GRINDER Gender Identity Male 09/14/2021 1:55 PM DRILL GRINDER Sexual Orientation Straight 09/14/2021 1: 55 PM DRILL GRINDER documented as of this encounter Plan of Treatment Upcoming Encounters Date Type Department Care Team (Late st Contact Info) Description 07/22/2025 1:30 PM DRILL GRINDER Office Visit [facility] [address] [place] [address] Jennifer Posada APRN, BOX WORKER-C [address] [phone] documented as of this encounter Visit Diagnoses Not on filedocumented in this encounter Care Teams Ice Skating Coach Relationship Specialty Start Date End Date eTo Hargrove MD [address] [place] [address] PCP - General FAMILY PRACTICE 08/28/19 12/30/20 Andrew Giles DO [address] [place] [address] PCP - General FAMILY PRACTICE 12/31/20 Ky Sandoval MD [address] [place] [phone] [place] Mechanical Striper CARDIOVASCULAR DISEASE 08/13/19 03/29/24 Jennifer Posada APRN, BOX WORKER-C [address] [phone] NURSE PRACTITIONER 03/30/24 Ritchie Forrester MD [address] [phone] Consulting Physician INTERVENTIONAL CARDIOLOGY 07/24/24 documented as of this encounter
--- OUTSIDE RECORDS SUMMARY | 2025-04-03 12:50 | XMS_ITS | Encounter Summary ---
Author Organization [facility] Address [facility] [place] [address] Care Team Providers Care Able Bodied Seaman Name Role Phone Ky Sandoval MD Unavailable [phone] Andrew Giles DO Primary Care Provider Jennifer Posada APRN, GROCERY CLERK SELLING-C Unavailable Ritchie Forrester MD Unavailable [phone] Encounter Details Date Type Department Care Team (Latest Contact Info) Description 06/02/2023 [employer] Message Enc [place] [facility] [address] [place] [address] Jennifer Posada APRN, GROCERY CLERK SELLING-C [address] [facility] [address] [place] [address] Effect of weight loss on prescriptions Social History Tobacco Use Types Packs/Day Years Used Date Smoking Tobacco: Former Smokeless Tobacco: Never Alcohol Use Standard Drinks/Week Comments Yes 0 (1 standard drink = 0.6 oz pur e alcohol) weekends Sex and Gender Information Value Date Recorded Sex Assigned at Male 11/21/2024 7:24 AM CDT Legal Sex Male 9:56 AM WIRE FENCE ERECTOR Gender Identity Male 09/14/2021 1:55 PM WIRE FENCE ERECTOR Sexual Orientation Straight 09/14/2021 1: 55 PM WIRE FENCE ERECTOR Occupation Industry Job Start Date Job End Date Not on file Not on file Not on file Not on file documented as of this encounter Plan of Treatment Upcoming Encounters Date Type Department Care Team (Late st Contact Info) Description 07/22/2025 1:30 PM WIRE FENCE ERECTOR Office Visit [facility] el [address] [place] [address] Jennifer Posada APRN, GROCERY CLERK SELLING-C [address] [address] documented as of this encounter Visit Diagnoses Not on filedocumented in this encounter Care Teams Able Bodied Seaman Relationship Specialty Start Date End Date Andrew Giles DO [address] [place] [address] PCP - General FAMILY PRACTICE 12/31/20 Ky Sandoval MD [address] [place] [address] Henriette Reel Blade Bender Furnace Tender CARDIOVASCULAR DISEASE 08/13/19 03/29/24 Jennifer Posada APRN, GROCERY CLERK SELLING-C [address] [address] NURSE PRACTITIONER 03/30/24 Ritchie Forrester MD [address] [phone] Consulting Physician INTERVENTIONAL CARDIOLOGY 07/24/24 documented as of this encounter
--- OUTSIDE RECORDS SUMMARY | 2025-04-03 12:50 | XMS_ITS | Encounter Summary ---
Author Organization [facility] Address [facility] [place] [address] Care Team Providers Care Medical Education Specialist Name Role Phone AnujasommerAndrew DO Primary Care Provider Jennifer Posada APRN, TRANSIT DRIVER-C Unavailable [phone] Ritchie Forrester MD Unavailable [phone] Encounter Details Date Type Department Care Team ([facility] st Contact Info) Description 07/24/2024 [employer] Message Enc [place] [facility] [address] [place] [address] Jennifer Posada APRN, TRANSIT DRIVER-C [address] [facility] [address] [place] [address] Your requested information Social History Tobacco Use Types Packs/Day Years Used Date Smoking Tobacco: Former Smokeless Tobacco: Never Alcohol Use Standard Drinks/Week Comments Yes 0 (1 standard drink = 0.6 oz pur e alcohol) weekends Sex and Gender Information Value Date Recorded Sex Assigned at Male 11/21/2024 7:24 AM CDT Legal Sex Male 9:56 AM JOB TRACER Gender Identity Male 09/14/2021 1:55 PM JOB TRACER Sexual Orientation Straight 09/14/2021 1: 55 PM JOB TRACER Occupation Industry Job Start Date Job End Date Not on file Not on file Not on file Not on file documented as of this encounter Plan of Treatment Upcoming Encounters Date Type Department Care Team (Late st Contact Info) Description 07/22/2025 1:30 PM JOB TRACER Office Visit [facility] el [address] [place] [address] Jennifer Posada APRN, TRANSIT DRIVER-C [address] [phone] documented as of this encounter Visit Diagnoses Not on filedocumented in this encounter Care Teams Medical Education Specialist Relationship Specialty Start Date End Date Andrew Giles DO [address] [place] [address] PCP - General FAMILY PRACTICE 12/31/20 Jennifer Posada APRN, TRANSIT DRIVER-C [address] [phone] NURSE PRACTITIONER 03/30/24 Ritchie Forrester MD [address] [phone] Consulting Physician INTERVENTIONAL CARDIOLOGY 07/24/24 documented as of this encounter
--- OUTSIDE RECORDS SUMMARY | 2025-04-03 12:50 | XMS_ITS | Encounter Summary ---
Author Organization [facility] Address [facility] [place] [address] Care Team Providers Care [facility] Shift Lead Name Role Phone Ky Sandoval MD Unavailable Andrew Giles DO Primary Care Provider Jennifer Posada APRN, ENTERPRISE APPLICATION ARCHITECT-C Unavailable Ritchie Forrester MD Unavailable [phone] Encounter Details Date Type Department Care Team (Late st Contact Info) Description 06/16/2023 [employer] Message Enc [place] [facility] ield [address] [place] [address] Jennifer Posada APRN, ENTERPRISE APPLICATION ARCHITECT-C [address] [facility] [address] [place] [address] refill request Social History Tobacco Use Types Packs/Day Years Used Date Smoking Tobacco: Former Smokeless Tobacco: Never Alcohol Use Standard Drinks/Week Comments Yes 0 (1 standard drink = 0.6 oz pur e alcohol) weekends Sex and Gender Information Value Date Recorded Sex Assigned at Male 11/21/2024 7:24 AM CDT Legal Sex Male 9:56 AM BOARDING HOUSE COOK Gender Identity Male 09/14/2021 1:55 PM BOARDING HOUSE COOK Sexual Orientation Straight 09/14/2021 1: 55 PM BOARDING HOUSE COOK Occupation Industry Job Start Date Job End Date Not on file Not on file Not on file Not on file documented as of this encounter Plan of Treatment Upcoming Encounters Date Type Department Care Team (Late st Contact Info) Description 07/22/2025 1:30 PM BOARDING HOUSE COOK Office Visit [facility] [facility] eld [address] [place] [address] Jennifer Posada APRN, ENTERPRISE APPLICATION ARCHITECT-C [address] [phone] documented as of this encounter Visit Diagnoses Not on filedocumented in this encounter Care Teams [facility] Shift Lead Relationship Specialty Start Date End Date Andrew Giles DO [address] [place] [address] PCP - General FAMILY PRACTICE 12/31/20 Ky Sandoval MD [address] [place] [address] [place] [employer] Motel Manager CARDIOVASCULAR DISEASE 08/13/19 03/29/24 Jennifer Posada APRN, ENTERPRISE APPLICATION ARCHITECT-C [address] [phone] NURSE PRACTITIONER 03/30/24 Ritchie Forrester MD [address] [phone] Consulting Physician INTERVENTIONAL CARDIOLOGY 07/24/24 documented as of this encounter
== END 2025-04-03 12:47 | disposition home or self-care (01) ==
LOC: CHSIMG 12:47
PROVIDERS: PCP Family Medicine; Visit Provider Nurse Practitioner Family
DX: R10.31 Right lower quadrant pain (principal)
CPT/HCPCS: 74176

== ENCOUNTER 2025-04-05 17:10 | Outpatient (CLI) | payer OTHER, SELFPAY ==
--- OUTSIDE RECORDS SUMMARY | 2025-04-05 17:13 | XMS_ITS | Encounter Summary ---
Author Organization [facility] Address [facility] [place] [address] Care Team Providers Care Screen Printing Paster Name Role Phone Ky Sandoval MD Unavailable Andrew Giles DO Primary Care Provider Jennifer Posada APRN, NP-C Unavailable Ritchie Forrester MD Unavailable [phone] Encounter Details Date Type Department Care Team (Late st Contact Info) Description 08/02/2023 Symwave Message Enc [facility] [address] [place] [address] Ky Sandoval MD [address] [place] [address] Blood Pressure readings after medicine change Social History Tobacco Use Types Packs/Day Years Used Date Smoking Tobacco: Former Smokeless Tobacco: Never Alcohol Use Standard Drinks/Week Comments Yes 0 (1 standard drink = 0.6 oz pur e alcohol) weekends Sex and Gender Information Value Date Recorded Sex Assigned at Male 11/21/2024 7:24 AM CDT Legal Sex Male 9:56 AM STATISTICIAN APPLIED Gender Identity Male 09/14/2021 1:55 PM STATISTICIAN APPLIED Sexual Orientation Straight 09/14/2021 1: 55 PM STATISTICIAN APPLIED Occupation Industry Job Start Date Job End Date Not on file Not on file Not on file Not on file documented as of this encounter Plan of Treatment Upcoming Encounters Date Type Department Care Team (Late st Contact Info) Description 07/22/2025 1:30 PM STATISTICIAN APPLIED Office Visit [facility]d [address] [place] [phone] Jennifer Posada APRN, SLITTER AND CUTTER OPERATOR-C [address] [phone] documented as of this encounter Visit Diagnoses Not on filedocumented in this encounter Care Teams Screen Printing Paster Relationship Specialty Start Date End Date Andrew Giles DO [address] [place] [address] PCP - General FAMILY PRACTICE 12/31/20 Ky Sandoval MD [address] [place] [phone] Raymond Drum Straightener CARDIOVASCULAR DISEASE 08/13/19 03/29/24 Jennifer Posada APRN, SLITTER AND CUTTER OPERATOR-C [address] [phone] NURSE PRACTITIONER 03/30/24 Rithcie Forrester MD [address] [phone] Consulting Physician INTERVENTIONAL CARDIOLOGY 07/24/24 documented as of this encounter
--- OUTSIDE RECORDS SUMMARY | 2025-04-05 17:13 | XMS_ITS | Clinical Summary ---
Author Organization [facility] Address [address] [place] [address] Care Team Providers Care Architectural Project Manager Name Role Phone AnujaAndrew novoa Primary Care Provider [phone] Jennifer Posada APRN MENDER HANDMilagrosC Unavailable Ritchie Forrester MD Unavailable [phone] Allergies Active Allergy Reactions Criticality Noted [...] artery disease DM (diabetes mellitus), type 2 ([facility]/HCC HHS/HCC) Hypertension Family History Medical History Relation [...] AM CDT Legal Sex Male 9:56 AM TRANSIT VEHICLE INSPECTOR Gender Identity Male 09/14/2021 1:55 PM TRANSIT VEHICLE INSPECTOR Sexual Orientation Straight 09/14/2021 1: 55 PM TRANSIT VEHICLE INSPECTOR Occupation Industry Job Start Date Job End Date Not on file Not on file Not on file Not on file Last Filed Vital Signs Vital Sign Reading Time Taken Comments Blood Pressure 116/74 07/23/2024 2:04 PM TRANSIT VEHICLE INSPECTOR Pulse 61 07/23/2024 2:04 PM TRANSIT VEHICLE INSPECTOR Temperature 36.7 C (98.1 F) 02/14/2023 11:15 AM CDT Respiratory Rate 18 07/23/2024 2:04 PM TRANSIT VEHICLE INSPECTOR Oxygen Saturation 98% 07/23/2024 2:04 PM TRANSIT VEHICLE INSPECTOR Inhaled Oxygen Concentration - - Weight 86.2 kg (190 lb) 07/23/2024 2:04 PM TRANSIT VEHICLE INSPECTOR Height 177.8 cm (5' 10) 07/23/2024 2:04 PM TRANSIT VEHICLE INSPECTOR Body Mass Index 27.26 07/23/2024 2:04 PM TRANSIT VEHICLE INSPECTOR Plan of Treatment Upcoming Encounters Date Type Department Care Team (Late st Contact Info) Description 07/22/2025 1:30 PM TRANSIT VEHICLE INSPECTOR Office Visit [facility] [address] [place] [address] Jennifer Posada, SAMPLE CARRIER, MENDER HAND-C [address] [facility] [address] [place] [phone] Health Maintenance Due Date Last Done Comments [...] 4:43 PM 09/17/2019 8:20 PM Care Teams Architectural Project Manager Relationship Specialty Start Date End Date Andrew Giles DO [address] [place] [address] PCP - General FAMILY PRACTICE 12/31/20 Jennifer Posada APRN, MENDER HAND-C [address] [facility] [address] [phone] NURSE PRACTITIONER 03/30/24 Ritchie Forrester MD [address] [facility] [address] [address] Consulting Physician INTERVENTIONAL CARDIOLOGY 07/24/24
--- OUTSIDE RECORDS SUMMARY | 2025-04-05 17:13 | XMS_ITS | Encounter Summary ---
Author Organization [facility] Address [facility] [place] [address] Care Team Providers Care Hotel Attendant Name Role Phone Ky Sandoval MD Unavailable Teo Hargrove MD Primary Care Provider [phone] Andrew Giles DO Primary Care Provider [phone] Jennifer Posada APRN, HOSPITALIST-C Unavailable Ritchie Forrester MD Unavailable [phone] Encounter Details Date Type Department Care Team (Late st Contact Info) Description 09/06/2019 Prep for Procedure [facility] Service Continuity Supervisor Pre/Post [address] [place], [place] [id number] Ky Sandoval MD [address] [place] [address] Social History Tobacco Use Types Packs/Day Years Used Date Smoking Tobacco: Former Smokeless Tobacco: Never Alcohol Use Standard Drinks/Week Comments Yes 0 (1 standard drink = 0.6 oz pur e alcohol) 2 per day or every other day Sex and Gender Information Value Date Recorded Sex Assigned at Male 11/21/2024 7:24 AM CDT Legal Sex Male 9:56 AM TEMPLATE INSPECTOR Gender Identity Male 09/14/2021 1:55 PM TEMPLATE INSPECTOR Sexual Orientation Straight 09/14/2021 1: 55 PM TEMPLATE INSPECTOR documented as of this encounter Plan of Treatment Upcoming Encounters Date Type Department Care Team (Late st Contact Info) Description 07/22/2025 1:30 PM TEMPLATE INSPECTOR Office Visit [facility] [address] [place] [phone] Jennifer Posada APRN, HOSPITALIST-C [address] [phone] documented as of this encounter Visit Diagnoses Not on filedocumented in this encounter Care Teams Hotel Attendant Relationship Specialty Start Date End Date Teo Hargrove MD [address] [place] [address] PCP - General FAMILY PRACTICE 08/28/19 12/30/20 Andrew Giles DO [address] [place] [address] PCP - General FAMILY PRACTICE 12/31/20 Ky Sandoval MD [address] [place] [phone] [place] Hot Wort Settler CARDIOVASCULAR DISEASE 08/13/19 03/29/24 Jennifer Posada APRN, HOSPITALIST-C [address] [phone] NURSE PRACTITIONER 03/30/24 Ritchie Forrester MD [address] [phone] Consulting Physician INTERVENTIONAL CARDIOLOGY 07/24/24 documented as of this encounter
--- OUTSIDE RECORDS SUMMARY | 2025-04-05 17:13 | XMS_ITS | Encounter Summary ---
Author Organization [facility] Address [facility] [place] [address] Care Team Providers Care Public Health Policy Analyst Name Role Phone AnujasommerAndrew DO Primary Care Provider [phone] Jennifer Posada APRN, PLANT OPERATOR-C Unavailable Ritchie Forrester MD Unavailable Encounter Details Date Type Department Care Team (Late st Contact Info) Description 11/13/2024 Acupera Message Enc [facility] [address] [place] [address] Jennifer Posada APRN, PLANT OPERATOR-C [address] [facility] [address] [place] [address] [employer] E[employer] Social History Tobacco Use Types Packs/Day Years Used Date Smoking Tobacco: Former Smokeless Tobacco: Never Alcohol Use Standard Drinks/Week Comments Yes 0 (1 standard drink = 0.6 oz pur e alcohol) weekends Sex and Gender Information Value Date Recorded Sex Assigned at Male 11/21/2024 7:24 AM CDT Legal Sex Male 9:56 AM CLINICAL TRIAL EDUCATOR Gender Identity Male 09/14/2021 1:55 PM CLINICAL TRIAL EDUCATOR Sexual Orientation Straight 09/14/2021 1: 55 PM CLINICAL TRIAL EDUCATOR Occupation Industry Job Start Date Job End Date Not on file Not on file Not on file Not on file documented as of this encounter Plan of Treatment Upcoming Encounters Date Type Department Care Team (Late st Contact Info) Description 07/22/2025 1:30 PM CLINICAL TRIAL EDUCATOR Office Visit [facility] [address] [place] [phone] Jennifer Posada APRN, PLANT OPERATOR-C [address] [address] documented as of this encounter Visit Diagnoses Not on filedocumented in this encounter Care Teams Public Health Policy Analyst Relationship Specialty Start Date End Date Andrew Giles DO [address] [place] [address] PCP - General FAMILY PRACTICE 12/31/20 Jennifer Posada APRN, PLANT OPERATOR-C [address] [phone] NURSE PRACTITIONER 03/30/24 Ritchie Forrester MD [address] [phone] Consulting Physician INTERVENTIONAL CARDIOLOGY 07/24/24 documented as of this encounter
--- OUTSIDE RECORDS SUMMARY | 2025-04-05 17:13 | XMS_ITS | Encounter Summary ---
Author Organization [facility] Address [facility] [place] [address] Care Team Providers Care Warehouse Receiver Name Role Phone AnujasommerAndrew DO Primary Care Provider Jennifer Posada APRN, LOCOMOTIVE CRANE ENGINEER-C Unavailable Ritchie Forrester MD Unavailable Encounter Details Date Type Department Care Team ([facility] st Contact Info) Description 07/24/2024 Share Some Style Message Enc [facility] [address] [place] [address] Jennifer Posada APRN, LOCOMOTIVE CRANE ENGINEER-C [address] [facility] [address] [place] [address] Your requested information Social History Tobacco Use Types Packs/Day Years Used Date Smoking Tobacco: Former Smokeless Tobacco: Never Alcohol Use Standard Drinks/Week Comments Yes 0 (1 standard drink = 0.6 oz pur e alcohol) weekends Sex and Gender Information Value Date Recorded Sex Assigned at Male 11/21/2024 7:24 AM CDT Legal Sex Male 9:56 AM OPTICAL GLASS INSPECTOR Gender Identity Male 09/14/2021 1:55 PM OPTICAL GLASS INSPECTOR Sexual Orientation Straight 09/14/2021 1: 55 PM OPTICAL GLASS INSPECTOR Occupation Industry Job Start Date Job End Date Not on file Not on file Not on file Not on file documented as of this encounter Plan of Treatment Upcoming Encounters Date Type Department Care Team (Late st Contact Info) Description 07/22/2025 1:30 PM OPTICAL GLASS INSPECTOR Office Visit [facility] el [address] [place] [phone] Jennifer Posada APRN, LOCOMOTIVE CRANE ENGINEER-C [address] [phone] documented as of this encounter Visit Diagnoses Not on filedocumented in this encounter Care Teams Warehouse Receiver Relationship Specialty Start Date End Date Andrew Giles DO [address] [place] [address] PCP - General FAMILY PRACTICE 12/31/20 Jennifer Posada APRN, LOCOMOTIVE CRANE ENGINEER-C [address] [phone] NURSE PRACTITIONER 03/30/24 Ritchie Forrester MD [address] [phone] Consulting Physician INTERVENTIONAL CARDIOLOGY 07/24/24 documented as of this encounter
--- OUTSIDE RECORDS SUMMARY | 2025-04-05 17:13 | XMS_ITS | Encounter Summary ---
Author Organization [facility] Address [facility] [place] [address] Care Team Providers Care Chicken And Fish Butcher Name Role Phone Ky Sandoval MD Unavailable Andrew Giles DO Primary Care Provider Jennifer Posada APRN, SOFTWARE TRAINER-C Unavailable [phone] Ritchie Forrester MD Unavailable [phone] Encounter Details Date Type Department Care Team (Late st Contact Info) Description 06/16/2023 [employer] Message Enc [facility] ield [address] [place] [address] Jennifer Posada APRN, SOFTWARE TRAINER-C [address] [facility] [address] [place] [address] refill request Social History Tobacco Use Types Packs/Day Years Used Date Smoking Tobacco: Former Smokeless Tobacco: Never Alcohol Use Standard Drinks/Week Comments Yes 0 (1 standard drink = 0.6 oz pur e alcohol) weekends Sex and Gender Information Value Date Recorded Sex Assigned at Male 11/21/2024 7:24 AM CDT Legal Sex Male 9:56 AM PEANUT SEPARATOR Gender Identity Male 09/14/2021 1:55 PM PEANUT SEPARATOR Sexual Orientation Straight 09/14/2021 1: 55 PM PEANUT SEPARATOR Occupation Industry Job Start Date Job End Date Not on file Not on file Not on file Not on file documented as of this encounter Plan of Treatment Upcoming Encounters Date Type Department Care Team (Late st Contact Info) Description 07/22/2025 1:30 PM PEANUT SEPARATOR Office Visit [facility] [address] [place] [address] Jennifer Posada APRN, SOFTWARE TRAINER-C [address] [phone] documented as of this encounter Visit Diagnoses Not on filedocumented in this encounter Care Teams Chicken And Fish Butcher Relationship Specialty Start Date End Date Andrew Giles DO [address] [place] [address] PCP - General FAMILY PRACTICE 12/31/20 Ky Sandoval MD [address] [place] [address] [place] Resident Physician CARDIOVASCULAR DISEASE 08/13/19 03/29/24 Jennifer Posada APRN, SOFTWARE TRAINER-C [address] [phone] NURSE PRACTITIONER 03/30/24 Ritchie Forrester MD [address] [phone] Consulting Physician INTERVENTIONAL CARDIOLOGY 07/24/24 documented as of this encounter
--- OUTSIDE RECORDS SUMMARY | 2025-04-05 17:13 | XMS_ITS | Encounter Summary ---
Author Organization [facility] Address [facility] [place] [address] Care Team Providers Care Facilities Supervisor Name Role Phone Ky Sandoval MD Unavailable [phone] Andrew Giles DO Primary Care Provider [phone] Jennifer Posada APRN, RN ANGIOGRAPHY-C Unavailable [phone] Ritchie Forrester MD Unavailable [phone] Encounter Details Date Type Department Care Team (Latest Contact Info) Description 06/02/2023 Innovolt Message Enc [facility] [address] [place] [address] Jennifer Posada APRN, RN ANGIOGRAPHY-C [address] [facility] [address] [place] [address] Effect of weight loss on prescriptions Social History Tobacco Use Types Packs/Day Years Used Date Smoking Tobacco: Former Smokeless Tobacco: Never Alcohol Use Standard Drinks/Week Comments Yes 0 (1 standard drink = 0.6 oz pur e alcohol) weekends Sex and Gender Information Value Date Recorded Sex Assigned at Male 11/21/2024 7:24 AM CDT Legal Sex Male 9:56 AM CONCRETE SPREADER Gender Identity Male 09/14/2021 1:55 PM CONCRETE SPREADER Sexual Orientation Straight 09/14/2021 1: 55 PM CONCRETE SPREADER Occupation Industry Job Start Date Job End Date Not on file Not on file Not on file Not on file documented as of this encounter Plan of Treatment Upcoming Encounters Date Type Department Care Team (Late st Contact Info) Description 07/22/2025 1:30 PM CONCRETE SPREADER Office Visit [facility] el [address] [place] [address] Jennifer Posada APRN, RN ANGIOGRAPHY-C [address] [address] documented as of this encounter Visit Diagnoses Not on filedocumented in this encounter Care Teams Facilities Supervisor Relationship Specialty Start Date End Date Andrew Giles DO [address] [place] [address] PCP - General FAMILY PRACTICE 12/31/20 Ky Sandoval MD [address] [place] [address] [place] Consulting Engineer CARDIOVASCULAR DISEASE 08/13/19 03/29/24 Jennifer Posada APRN, RN ANGIOGRAPHY-C [address] [phone] NURSE PRACTITIONER 03/30/24 Ritchie Forrester MD [address] [phone] Consulting Physician INTERVENTIONAL CARDIOLOGY 07/24/24 documented as of this encounter
[2025-04-08 18:08] LABS: B microti IgG <1:10 (Neg:<1:10); E. chaffeensis IgG Negative (Neg:<1:64)
== END 2025-04-05 17:11 | disposition home or self-care (01) ==
LOC: CHSLAB 17:12
PROVIDERS: PCP Family Medicine; Visit Provider Family Medicine
DX: R10.31 Right lower quadrant pain (principal); R10.9 Unspecified abdominal pain; N50.89 Other specified disorders of the male genital organs; R21 Rash and other nonspecific skin eruption
CPT/HCPCS: 86618; 86666

== ENCOUNTER 2025-04-12 09:06 | Emergency (ER) | payer OTHER, SELFPAY ==
[2025-04-12] VITALS (27 sets, daily range): BP systolic 113–139; BP diastolic 75–89; PULSE 55–72; RESP 12–24; TEMP 36.8; O2SAT 93–100
--- NOTE | ~2025-04-12 | XR_ITS ---
EXAMINATION: XR chest 2V, 04/12/2025 9:30 CDT HISTORY: Lt. sided chest pain, sob with exertion x2 weeks; worsening COMPARISON: No comparisons available. Technique: 2 views obtained. Findings: The lungs are clear, no effusion. No pneumothorax. Heart is normal size. Mediastinal and hilar contours are within normal limits. Bony thorax no acute abnormality. Impression: No acute cardiopulmonary abnormality. Reviewed, dictated and finalized at location A. Impression: No acute cardiopulmonary abnormality.
--- NOTE | 2025-04-12 09:07 | ECG_ITS ---
Test Date: 2025-04-12 09:09:02 Measurements Intervals Pateros Rate: 61 P: 61 MA: 166 QRS: 48 QRSD: 90 T: 67 QT: 378 QTc: 382 Interpretive Statements SINUS RHYTHM INCOMPLETE RIGHT BUNDLE BRANCH BLOCK BASELINE ARTIFACT- I, II, III, AVR, AVL, AVF BORDERLINE ECG Compared to ECG 11/13/2024 09:28:47 No significant changes Electronically Signed On 04-12-2025 09:54:19 CDT by Dennys Peck D.O.
--- NOTE | 2025-04-12 09:16 | ED_ITS ---
HPI - Chest Pain General Chief Complaint: Chest Pain Stated Complaint: chest pain Time Seen by Provider: 04/12/25 09:06 Source: patient Mode of arrival: ambulatory Limitations: no limitations History of Present Illness HPI narrative: patient is a 54-year-old male with some chest pain that started as he awoke this morning. It is left-sided chest pain and substernal. Radiation to the back. Stress test 4-5 months ago that was negative and GERD diagnosis was given. Heart catheterization a few years ago which was diagnosed with medical management only. MD complaint: chest pain Onset (ago): hour(s) ( patient awoke from sleep this morning to left-sided chest pain) Timing of current episode: episodic ( Over the past few weeks he has had episodes of the chest pain but now is more constant today) and constant ( starting today) Prior episodes: Yes Onset: during rest Pain location: substernal and left chest Pain radiation: back Severity: moderate Quality: heaviness and fullness Relieving factors: nothing Exacerbating factors: nothing and other ( today is not a overly stressful day for the patient) Context: other ( patient is having chest pain on left side substernal radiating to the back since this morning) Treatment prior to arrival: aspirin Risk Factors Coronary artery disease risk factors: diabetes, smoking history and hyperlipidemia Thoracic aortic dissection risk factors: none Related Data Home Medications ?Medication ?Instructions ?Recorded ?Confirmed ?Last Taken ?Type amlodipine 5 mg tablet 5 mg PO DAILY 10/28/2303/25 Unknown History ciprofloxacin HCl 500 mg tablet mg 04/12/25 Unknown H istory Allergies Allergy/AdvReac Type Severity Reaction Status Date / Time No Known Allergies Allergy Verified 04/12/25 09:42 Review of Systems 2 Review of Systems: All systems reviewed & are unremarkable except as noted in HPI and below Constitutional: Constitutional: Reports no additional constitutional complaints Eyes: Eyes: Reports no additional eye complaints ENT: Reports system reviewed and no additional complaints, except as documented Cardiovascular: Cardiovascular: Reports no additional cardiovascular complaints Respiratory: Respiratory: Reports no additional respiratory complaints Gastrointestinal: Gastrointestinal: Reports no additional gastrointestinal complaints Genitourinary: Genitourinary: Reports no additional male genitourinary complaints Musculoskeletal: Musculoskeletal: Reports no additional musculoskeletal complaints Integumentary/Breasts: Skin/Breast: Reports system reviewed and no additional complaints, except as docu Neurologic: Reports system reviewed and no additional complaints, except as documented Psychiatric: Psychiatric: Reports no additional psychiatric complaints Endocrine: Endocrine: Reports no additional endocrine complaints Hematologic/Lymphatic: Hematologic/Lymphatic: Reports no additional hematologic/lymphatic complaints Allergic/Immunologic: Allergic/Immunologic: Reports no additional allergic/immunologic complaints [facility] Past Medical History Medical History CKD (chronic kidney disease) IBS (irritable bowel syndrome) Hyperlipidemia DM2 (diabetes mellitus, type 2) WILFREDO (obstructive sleep apnea) Uses CPAP Overweight Surgical History Surgical History History of cholecystectomy 2016 History of hernia repair History of tonsillectomy and adenoidectomy Social History Social History Smoking status: Smoker, status unknown Living arrangements: with family Occupation/Education: occupation Additional occupation/education comments: Works at [employer] Gender identity (if verbalized by the patient): Male Exam 2 Const: General: ill appearing ( patient has a pale look to him) Nutritional Appearance: well nourished Orientation/consciousness: patient oriented x3 Limitations: no limitations HENMT: Head: normal to inspection Ears: external ears normal F chris/Nose/Sinus: Normal external nose present Eyes: Conjunctivae: conjunctivae normal Pupils: Equal, round and reactive pupils present EOM: EOMs intact bilaterally Neck: Neck: normal visual inspection Chest: Chest palpation & inspection: normal inspection of the chest Resp: Effort & Inspection: normal respiratory effort and not labored A uscultation: clear to auscultation bilaterally and no crackles Cardio: Rate: regular rate Rhythm: regular rhythm Heart sounds: no murmurs GI: Inspection: non-distended GI Palp: Yes Soft to palpation and No Tenderness to palpation present (GI) Auscultation: normal bowel sounds : General: Yes bladder normal to palpation Back/Spine/Pelvis: Back: no CVA tenderness Neuro: General: patient oriented x3, moves all extremities, no meningeal signs, no focal motor deficits and CN's II-XI intact bilaterally Extrem: General: normal to inspection, no clubbing, cyanosis or edema and no pedal edema Psych: Mental Status: mental status grossly normal Affect: normal affect Attitude: cooperative Course Vital Signs Vital signs: Vital Signs Temperature 36.8 C 04/12/25 09:06 Pulse Rate 63 04/12/25 09:06 Respiratory Rate 18 04/12/25 09:06 Blood Pressure 139/89 04/12/25 09:06 Pulse Oximetry 100 04/12/25 09:06 Oxygen Delivery Room Air 04/12/25 09:06 Temperature 36.8 C 04/12/25 09:06 Pulse Rate 59 L 04/12/25 11:08 Respiratory Rate 15 04/12/25 11:08 Blood Pressure 115/79 04/12/25 11:00 Pulse Oximetry 97 04/12/25 11:08 Oxygen Delivery Room Air 04/12/25 10:25 MDM - Chest Pain MDM Narrative Medical decision making narrative: patient is a 54-year-old male with chest pain left-sided radiating to the back started this morning. He does not have extensive CAD but does have medical management from a catheterization done a few years ago and a negative stress test done 3 months ago. We will do a cardiac workup on this patient at this time. at time of discharge, the patient has no more chest pain. He would like to be discharged home and follow-up outpatient with Cardiology. Lab Data Attestation: I reviewed the patient's lab results. 04/12/25 09:26 04/12/25 09:26 Labs: Lab Results 04/12/25 04/12/25 04/12/25 Range/Units 09:25 09:26 11:33 WBC 6.2 (4.8-10.8) K/mm3 RBC 4.87 (4.70-6.10) M/mm3 Hgb 14.4 (14.0-18.0) g/dL Hct 41.8 (40.0-54.0) % MCV 85.8 (78.0-102.0) fL MCH 29.6 (27.0-31.0) pg MCHC 34.4 (32-36) g/dL RDW 12.5 (11.6-14.4) % Plt Count 168 (150-420) K/mm3 MPV 8.6 L (8.7-11.0) fl Immature Gran % (Auto) 0.2 H (0.0-0.0) % Neut % (Auto) 61.0 (50.0-70.0) % Lymph % (Auto) 31.1 (18.0-42.0) % [place] % (Auto) 6.3 (2.0-11.0) % Eos % (Auto) 0.8 L (1.0-6.0) % Baso % (Auto) 0.6 (0.0-1.0) % Lymph # (Auto) 1.92 (1.10-4.50) K/mm3 [place] # (Auto) 0.39 (0.10-0.90) K/mm3 Eos # (Auto) 0.05 (0.02-0.50) K/mm3 Baso # (Auto) 0.04 (0.00-0.10) K/mm3 Abs Immat Gran (auto) 0.01 H (0.00-0.00) K/mm3 Absolute Neuts (auto) 3.77 (1.70-7.20) K/mm3 Absolute Nucleated RBC 0.00 (0.00-0.00) K/mm3 Nucleated RBC % 0.0 (0-0.0) % PT 10.8 (9.50-12.1) Seconds INR 1.0 APTT 26.1 (23.9-30.70) Sec D-Dimer 0.19 (0.19-0.50) mg/L Sodium 142 (137-145) mmol/L Potassium 4.4 (3.4-5.0) mmol/L Chloride 104 (98-107) mmol/L Carbon Dioxide 29 (22-30) mmol/L Anion Gap 9 (4-12) mmol/L BUN 17 (9-20) mg/dL Creatinine 1.14 (0.7-1.3) mg/dL Estim Creat Clear Calc 66 ml/min Estimated GFR > 60 (59 - ) Glucose 132 H (65-110) mg/dL Calculated Osmolality 297 H (285-295) mOsm/kg Calcium 10.0 (8.4-10.2) mg/dL Total Bilirubin 0.7 (0.2-1.3) mg/dL AST 30 (17-59) U/L ALT 23 (6-50) U/L Alkaline Phosphatase 76 (38-126) U/L Troponin I < 0.012 < 0.012 (0.000-0.034) ng/mL NT-Pro-B Natriuret Pep 22 (19.9-100) pg/mL Total Protein 7.2 (6.3-8.2) g/dL Albumin 4.7 (3.5-5.1) g/dL Urine Color Light yellow (Yellow) Urine Appearance Clear (Clear) Urine pH 6.5 (5.0-8.0) Ur Specific Lambert <= 1.005 L (1.010-1.020) Urine Protein Negative (Negative) Urine Glucose (UA) Negative (Negative) Urine Ketones Negative (Negative) Ur Blood (Man) Negative (Negative) Urine Nitrate Negative (Negative) Urine Bilirubin Negative (Negative) Urine Urobilinogen 0.2 (0.2-1.0) mg/dL Leukocyte Esterase Rfl Negative (Negative) DYLLAN/UL Imaging Data Attestation: I personally reviewed and interpreted this imaging study as follows: Radiologist's impression: Chest x-ray is negative for acute process ECG Data EKG #1: Attestation: I personally reviewed and interpreted this ECG as follows: ECG completion date: 04/12/25 ECG completion time: 09:46 EKG Interpretation: normal rate, sinus rhythm, no ST changes, normal QRS, normal QT, prolonged QT, NL axis and no acute changes EKG #2: Attestation: I personally reviewed and interpreted this ECG as follows: ECG completion date: 04/12/25 ECG completion time: 11:53 EKG Interpretation: bradycardia, sinus rhythm, no ectopy, no ST changes, normal QRS, normal QT, NL axis and no acute changes Discharge Plan Discharge Clinical Impression: Angina pectoris, Diabetes mellitus type 2 in nonobese Patient Disposition: Acute Care Hospital Condition: Stable Instructions: Angina (ED) Additional Instructions: please follow-up with the primary doctor next week. Please follow-up with the millwright instructor in the next 2 weeks. Further cardiac workup could include cardiac catheterization verses dye heart studies such as nuclear scans. Echocardiogram suggested also. Patient Language: Palauan Prescriptions: No Action ciprofloxacin HCl 500 mg tablet amlodipine 5 mg tablet 5 mg PO DAILY amoxicillin-pot clavulanate 875-125 mg tablet 1 tablet PO BID Qty: 20 0RF sildenafil (pulm.hypertension) 20 mg tablet See Rx Instructions .ROUTE .COMPLEX Qty: 60 0RF Dose Instruction: TAKE 1-5 TABLETS BY MOUTH ON HOUR PRIOR TO SEXUAL ACTIVITY DAILY NEEDED Rx Instructions: TAKE 1-5 TABLETS BY MOUTH ON HOUR PRIOR TO SEXUAL ACTIVITY DAILY NEEDED Mounjaro 5 mg/0.5 mL pen injector See Rx Instructions .ROUTE .COMPLEX Qty: 2 0RF Dose Instruction: INJECT 5 MG SUBCUTANEOUSLY WEEKLY (E11.9) Rx Instructions: INJECT 5 MG SUBCUTANEOUSLY WEEKLY (E11.9) pravastatin 10 mg tablet See Rx Instructions .ROUTE .COMPLEX Qty: 90 0RF Dose Instruction: TAKE ONE TABLET BY MOUTH BEDTIME Rx Instructions: TAKE ONE TABLET BY MOUTH BEDTIME Follow-up/Referrals: Andrew Giles DO [Physician, Family Practice] Time of Disposition: 12:11
[2025-04-12 09:31] LABS: Hematocrit 41.8 % (40.0-54.0); Hemoglobin 14.4 g/dL (14.0-18.0); Immature Granulocyte Percent A 0.2 % (0.0-0.0); Lymphocytes Absolute Auto 1.92 K/mm3 (1.10-4.50); Mean Corpuscular HGB Conc 34.4 g/dL (32-36); Mean Corpuscular Hemoglobin 29.6 pg (27.0-31.0); Mean Corpuscular Volume 85.8 fL (78.0-102.0); Nucleated Red Blood Cells Absolute Auto 0.00 K/mm3 (0.00-0.00); Nucleated Red Blood Cells Perc 0.0 % (0-0.0); Platelet Count Result 168 K/mm3 (150-420); Red Blood Count 4.87 M/mm3 (4.70-6.10); White Blood Count 6.2 K/mm3 (4.8-10.8)
[2025-04-12 09:42] LABS: Alanine Aminotransferase 23 U/L (6-50); Albumin Level 4.7 g/dL (3.5-5.1); Alkaline Phosphatase 76 U/L (38-126); Anion Gap 9 mmol/L (4-12); Aspartate Amino Transferase 30 U/L (17-59); Bilirubin,Total 0.7 mg/dL (0.2-1.3); Blood Urea Nitrogen 17 mg/dL (9-20); Calcium 10.0 mg/dL (8.4-10.2); Carbon Dioxide 29 mmol/L (22-30); Chloride 104 mmol/L (98-107); Estimated CRCL calculation 66 ml/min; Estimated Glomerular Filt Rate > 60; Glucose 132 mg/dL (65-110); Osmolality Calculated 297 mOsm/kg (285-295); Potassium 4.4 mmol/L (3.4-5.0); Sodium 142 mmol/L (137-145); Total Protein 7.2 g/dL (6.3-8.2)
[2025-04-12 09:45] LABS: INR 1.0; Partial Thromboplastin Time 26.1 Sec (23.9-30.70); Prothrombin Time 10.8 Seconds (9.50-12.1)
[2025-04-12 09:51] LABS: NT Pro B Type Natriuretic Pept 22 pg/mL (19.9-100)
[2025-04-12 09:54] LABS: Troponin I < 0.012 ng/mL (0.000-0.034)
[2025-04-12] MEDS: NITROGLYCERIN SL 0.4 MG TABLET SUBLINGUAL (09:58)
[2025-04-12] MEDS: ACETAMINOPHEN 500 MG TABLET 1000 MG PO (10:12)
[2025-04-12 10:13] LABS: Add Urine Microscopic? NO; Appearance Urine Clear (Clear); Glucose Urine UA Negative (Negative); Leukocyte Esterase Ur Negative LEU/UL (Negative); Nitrate Urine Negative (Negative); Specific Grav Ur <= 1.005 (1.010-1.020)
--- NOTE | 2025-04-12 11:29 | ECG_ITS ---
Test Date: 2025-04-12 11:34:38 Measurements Intervals [place] Rate: 56 P: 54 WV: 181 QRS: 42 QRSD: 107 T: 64 QT: 410 QTc: 396 Interpretive Statements SINUS BRADYCARDIA EARLY PRECORDIAL R/S TRANSITION BORDERLINE ECG Compared to ECG 04/12/2025 09:09:02 Sinus rhythm no longer present Incomplete right bundle-branch block no longer present Electronically Signed On 04-12-2025 12:08:19 CDT by Dennys Peck D.O.
[2025-04-12 11:59] LABS: Troponin I < 0.012 ng/mL (0.000-0.034)
== END 2025-04-12 12:13 | disposition home or self-care (01) ==
PROVIDERS: Emergency Provider Emergency Medicine; PCP Internal Medicine
DX: I20.9 Angina pectoris, unspecified (principal); E11.22 Type 2 diabetes mellitus with diabetic chronic kidney disease; N18.9 Chronic kidney disease, unspecified; E78.5 Hyperlipidemia, unspecified; Z79.82 Long term (current) use of aspirin
CPT/HCPCS: 36415; 71046; 80053; 81003; 83880; 84484; 85025; 85380; 85610; 85730; 93005; 99284; A9270

== ENCOUNTER 2025-04-23 10:21 | Outpatient (CLI) | payer OTHER, SELFPAY ==
--- NOTE | ~2025-04-23 | CT_ITS ---
EXAMINATION: CT brain wo con DATE: 04/23/2025 11:03 INDICATION: Headache TECHNIQUE: Computed tomography (CT) of the head was performed without intravenous contrast. Sagittal and coronal reconstructions were performed. The mA was adjusted according to patient size. Iterative reconstruction technique was employed. The dose-length product was 150.00 mGy-cm. COMPARISON: None FINDINGS: No acute intracranial hemorrhage, acute infarction or abnormal extra axial fluid collection. Ventricles are normal and symmetric. No mass/mass effect. The left mastoid is hypopneumatized but clear. The orbitsand paranasal sinuses are normal. IMPRESSION: 1. Normal brain. No acute intracranial process. Reviewed, dictated and finalized at location A.
--- OUTSIDE RECORDS SUMMARY | 2025-04-23 11:57 | XMS_ITS | Encounter Summary ---
Author Organization [facility] Address Replaced by [facility] [place] [address] Care Team Providers Care Business Analysis Specialist Name Role Phone Ky Sandoval MD Unavailable Teo Hargrove MD Primary Care Provider [phone] Andrew Giles DO Primary Care Provider [phone] Jennifer Posada APRN, JEWELRY DESIGNER-C Unavailable Ritchie Forrester MD Unavailable [phone] Encounter Details Date Type Department Care Team (Late st Contact Info) Description 09/06/2019 Prep for Procedure [place] [employer] [facility] [address] [place], [place] [address] Ky Sandoval MD [address] [place] [address] Social History Tobacco Use Types Packs/Day Years Used Date Smoking Tobacco: Former Smokeless Tobacco: Never Alcohol Use Standard Drinks/Week Comments Yes 0 (1 standard drink = 0.6 oz pur e alcohol) 2 per day or every other day Sex and Gender Information Value Date Recorded Sex Assigned at Male 11/21/2024 7:24 AM CDT Legal Sex Male 9:56 AM ACQUISITIONS LIBRARIAN Gender Identity Male 09/14/2021 1:55 PM ACQUISITIONS LIBRARIAN Sexual Orientation Straight 09/14/2021 1: 55 PM ACQUISITIONS LIBRARIAN documented as of this encounter Plan of Treatment Upcoming Encounters Date Type Department Care Team (Late st Contact Info) Description 05/03/2025 8:00 AM CDT Appointment [place] [address] [place] [address] Jennifer Posada APRN, JEWELRY DESIGNER-C [address] [address] 07/22/2025 1:30 PM ACQUISITIONS LIBRARIAN Office Visit [facility] el [address] [place] [address] Jennifer Posada APRN, JEWELRY DESIGNER-C [address] [address] documented as of this encounter Visit Diagnoses Not on filedocumented in this encounter Care Teams Business Analysis Specialist Relationship Specialty Start Date End Date Teo Hargrove MD [address] [place] [address] PCP - General FAMILY PRACTICE 08/28/19 12/30/20 Andrew Giles DO [address] [place] [address] PCP - General FAMILY PRACTICE 12/31/20 Ky Sandoval MD [address] [place] [address] [place] Outsole Scheduler CARDIOVASCULAR DISEASE 08/13/19 03/29/24 Jennifer Posada APRN, JEWELRY DESIGNER-C [address] [address] NURSE PRACTITIONER 03/30/24 Ritchie Forrester MD [address] [phone] Consulting Physician INTERVENTIONAL CARDIOLOGY 07/24/24 documented as of this encounter
--- OUTSIDE RECORDS SUMMARY | 2025-04-23 11:57 | XMS_ITS | Encounter Summary ---
Author Organization [facility] Address [facility] [place] [address] Care Team Providers Care Producer Arborist Manager Name Role Phone Andrew Giles DO Primary Care Provider [phone] Jennifer Posada APRN, NP-C Unavailable Ritchie Forrester MD Unavailable [phone] Reason for Referral * Imaging (Routine) - Authorized Specialty Diagnoses / Procedures Referred By Contac t Referred To Contact RADIOLOGY Diagnoses Coronary artery disease involving [place] coronary artery of [place] heart with angina pectoris Precordial pain Procedures CTA CORONARY INCIDENTAL FINDINGS Jennifer Posada APRN, NP-C [address] [place] [address] Phone: tel: fax: Referral ID Status Reason Start Date Expiration Date V isits Requested Visits Authorized [id number] Authorized CT 04/22/2025 04/22/2026 1 1 * Imaging (Routine) - Authorized Specialty Diagnoses / Procedures Referred By Contac t Referred To Contact RADIOLOGY Diagnoses Coronary artery disease involving [place] coronary artery of [place] heart with angina pectoris Precordial pain Procedures CTA CORONARY WO SCORING Jennifer Posada APRN, NP-C [address] [place] [address] Phone: tel: fax: Referral ID Status Reason Start Date Expiration Date V isits Requested Visits Authorized [id number] Authorized 04/22/2025 10/19/2025 1 1 Encounter Details Date Type Department Care Team (Late st Contact Info) Description 04/19/[address] [facility]eld [address] [place] [address] Jennifer Posada APRN COLLEGE SPORTS COACHMarilee [address] [facility] [address] [place] [address] 04/19/25 Update Social History Tobacco Use Types Packs/Day Years Used Date Smoking Tobacco: Former Smokeless Tobacco: Never Alcohol Use Standard Drinks/Week Comments Yes 0 (1 standard drink = 0.6 oz pur e alcohol) weekends Sex and Gender Information Value Date Recorded Sex Assigned at Male 11/21/2024 7:24 AM CDT Legal Sex Male 9:56 AM TRANSPORTATION ENGINEER Gender Identity Male 09/14/2021 1:55 PM TRANSPORTATION ENGINEER Sexual Orientation Straight 09/14/2021 1: 55 PM TRANSPORTATION ENGINEER Occupation Industry Job Start Date Job End Date Not on file Not on file Not on file Not on file documented as of this encounter Progress Notes * Beau Cardona LPN - 04/22/2025 4:18 PM CDT Patient is scheduled for CTA Coronary on 05/03/25 at 0800 SJS. documented in this encounter Plan of Treatment Upcoming Encounters Date Type Department Care Team (Late st Contact Info) Description 05/03/2025 8:00 AM CDT Appointment [place] [address] [place] [address] Jennifer Posada APRN, COLLEGE SPORTS COACH-C [address] [phone] 07/22/2025 1:30 PM TRANSPORTATION ENGINEER Office Visit [facility] el [address] [place] [phone] Jennifer Posada APRN, COLLEGE SPORTS COACHMilagrosC [address] [address] Scheduled Orders Name Type Priority Associated Diagnoses Orde r Schedule CTA CORONARY WO SCORING CT Routine Coronary artery disease involving [place] coronary artery of [place] heart with angina pectoris Precordial pain Expected: 04/22/2025, Expires: 04/22/[address] FINDINGS CT Routine Coronary artery disease involving [place] coronary artery of [place] heart with angina pectoris Precordial pain Expected: 04/22/2025, Expires: 04/22/2026 documented as of this encounter Visit Diagnoses Diagnosis Coronary artery disease involving [place] coronary artery of [place] heart with angina pectoris- Primary Precordial pain documented in this encounter Care Teams Producer Arborist Manager Relationship Specialty Start Date End Date Andrew Giles DO [address] [place] [address] PCP - General FAMILY PRACTICE 12/31/20 Jennifer Posada APRN, COLLEGE SPORTS COACH-C [address] [phone] NURSE PRACTITIONER 03/30/24 Ritchie Forrester MD [address] [phone] Consulting Physician INTERVENTIONAL CARDIOLOGY 07/24/24 documented as of this encounter
--- OUTSIDE RECORDS SUMMARY | 2025-04-23 11:57 | XMS_ITS | Encounter Summary ---
Author Organization [facility] Address [facility] [place] [address] Care Team Providers Care Gwot Ia/Ilo Intelligence Support Name Role Phone Andrew Giles DO Primary Care Provider [phone] Jennifer Posada APRN, SEAM TAPER MACHINE-C Unavailable [phone] Ritchie Forrester MD Unavailable [phone] Encounter Details Date Type Department Care Team ([facility] st Contact Info) Description 04/22/2025 Orders Only [facility] [address] [place] [address] Jennifer Posada APRN, SEAM TAPER MACHINE-C [address] [facility] [address] [place] [address] Social History Tobacco Use Types Packs/Day Years Used Date Smoking Tobacco: Former Smokeless Tobacco: Never Alcohol Use Standard Drinks/Week Comments Yes 0 (1 standard drink = 0.6 oz pur e alcohol) weekends Sex and Gender Information Value Date Recorded Sex Assigned at Male 11/21/2024 7:24 AM CDT Legal Sex Male 9:56 AM CUSTOM SEAMSTRESS Gender Identity Male 09/14/2021 1:55 PM CUSTOM SEAMSTRESS Sexual Orientation Straight 09/14/2021 1: 55 PM CUSTOM SEAMSTRESS Occupation Industry Job Start Date Job End Date Not on file Not on file Not on file Not on file documented as of this encounter Plan of Treatment Upcoming Encounters Date Type Department Care Team (Late st Contact Info) Description 05/03/2025 8:00 AM CDT Appointment [employer] [address] [place] [address] Jennifer Posada APRN, SEAM TAPER MACHINE-C [address] [phone] 07/22/2025 1:30 PM CUSTOM SEAMSTRESS Office Visit [facility] eld [address] [place] [address] Jennifer Posada APRN, SEAM TAPER MACHINE-C [address] [address] documented as of this encounter Visit Diagnoses Not on filedocumented in this encounter Care Teams Gwot Ia/Ilo Intelligence Support Relationship Specialty Start Date End Date Andrew Giles DO [address] [place] [address] PCP - General FAMILY PRACTICE 12/31/20 Jennifer Posada APRN, SEAM TAPER MACHINE-C [address] [phone] NURSE PRACTITIONER 03/30/24 Ritchie Forrester MD [address] [phone] Consulting Physician INTERVENTIONAL CARDIOLOGY 07/24/24 documented as of this encounter
--- OUTSIDE RECORDS SUMMARY | 2025-04-23 11:57 | XMS_ITS | Encounter Summary ---
Author Organization [facility] Address [facility] [place] [address] Care Team Providers Care Money Order Clerk Name Role Phone AnujasommerAndrew DO Primary Care Provider [phone] Jennifer Posada APRN, HYDRAULIC CORRUGATING MACHINE OPERATOR-C Unavailable [phone] Ritchie Forrester MD Unavailable [phone] Encounter Details Date Type Department Care Team (Late st Contact Info) Description 04/18/2025 Watchful Software Message Enc [facility] ield [address] [place] [address] Jennifer Posada APRN, HYDRAULIC CORRUGATING MACHINE OPERATOR-C [address] [facility] [address] [place] [address] ER follow-up Social History Tobacco Use Types Packs/Day Years Used Date Smoking Tobacco: Former Smokeless Tobacco: Never Alcohol Use Standard Drinks/Week Comments Yes 0 (1 standard drink = 0.6 oz pur e alcohol) weekends Sex and Gender Information Value Date Recorded Sex Assigned at Male 11/21/2024 7:24 AM CDT Legal Sex Male 9:56 AM STRIKE ON MACHINE OPERATOR Gender Identity Male 09/14/2021 1:55 PM STRIKE ON MACHINE OPERATOR Sexual Orientation Straight 09/14/2021 1: 55 PM STRIKE ON MACHINE OPERATOR Occupation Industry Job Start Date Job End Date Not on file Not on file Not on file Not on file documented as of this encounter Progress Notes * Jennifer Posada APRN, HYDRAULIC CORRUGATING MACHINE OPERATORMarilee - 04/18/2025 4:49 PM CDT Addressed in separate encounter. Electronically signed by Jennifer Posada APRN HYDRAULIC CORRUGATING MACHINE OPERATORMarilee at 04/18/2025 4:49 PM CDT documented in this encounter Plan of Treatment Upcoming Encounters Date Type Department Care Team (Late st Contact Info) Description 05/03/2025 8:00 AM CD[facility] [address] [place] [address] Jennifer Posada APRN, HYDRAULIC CORRUGATING MACHINE OPERATOR-C [address] [address] 07/22/2025 1:30 PM STRIKE ON MACHINE OPERATOR Office Visit [facility] [address] [place] [address] Jennifer Posada APRN, HYDRAULIC CORRUGATING MACHINE OPERATOR-C [address] [address] documented as of this encounter Visit Diagnoses Not on filedocumented in this encounter Care Teams Money Order Clerk Relationship Specialty Start Date End Date Andrew Giles DO [address] [place] [address] PCP - General FAMILY PRACTICE 12/31/20 Jennifer Posada APRN, HYDRAULIC CORRUGATING MACHINE OPERATOR-C [address] [address] NURSE PRACTITIONER 03/30/24 Ritchie Forrester MD [address] [phone] Consulting Physician INTERVENTIONAL CARDIOLOGY 07/24/24 documented as of this encounter
--- OUTSIDE RECORDS SUMMARY | 2025-04-23 11:58 | XMS_ITS | Encounter Summary ---
Author Organization [facility] Address [facility] [place] [address] Care Team Providers Care Wire Galvanizer Name Role Phone AnujasommerAndrew DO Primary Care Provider [phone] Jennifer Posada APRN, GROUNDS SUPERVISOR-C Unavailable [phone] Ritchie Forrester MD Unavailable [phone] Encounter Details Date Type Department Care Team (Late st Contact Info) Description 11/13/2024 [place] [employer] Message Enc [place] [facility] [address] [place] [address] Jennifer Posada APRN, GROUNDS SUPERVISOR-C [address] [facility] [address] [place] [address] [employer] E[facility] Social History Tobacco Use Types Packs/Day Years Used Date Smoking Tobacco: Former Smokeless Tobacco: Never Alcohol Use Standard Drinks/Week Comments Yes 0 (1 standard drink = 0.6 oz pur e alcohol) weekends Sex and Gender Information Value Date Recorded Sex Assigned at Male 11/21/2024 7:24 AM CDT Legal Sex Male 9:56 AM BUILDING MAINTENANCE ENGINEER Gender Identity Male 09/14/2021 1:55 PM BUILDING MAINTENANCE ENGINEER Sexual Orientation Straight 09/14/2021 1: 55 PM BUILDING MAINTENANCE ENGINEER Occupation Industry Job Start Date Job End Date Not on file Not on file Not on file Not on file documented as of this encounter Plan of Treatment Upcoming Encounters Date Type Department Care Team (Late st Contact Info) Description 05/03/2025 8:00 AM CDT Appointment [facility] [address] [place] [address] Jennifer Posada APRN, GROUNDS SUPERVISOR-C [address] [address] 07/22/2025 1:30 PM BUILDING MAINTENANCE ENGINEER Office Visit [facility] eld [address] [place] [address] Jennifer Posada APRN, GROUNDS SUPERVISOR-C [address] [address] documented as of this encounter Visit Diagnoses Not on filedocumented in this encounter Care Teams Wire Galvanizer Relationship Specialty Start Date End Date Andrew Giles DO [address] [place] [address] PCP - General FAMILY PRACTICE 12/31/20 Jennifer Posada APRN, GROUNDS SUPERVISOR-C [address] [address] NURSE PRACTITIONER 03/30/24 Ritchie Forrester MD [address] [address] Consulting Physician INTERVENTIONAL CARDIOLOGY 07/24/24 documented as of this encounter
--- OUTSIDE RECORDS SUMMARY | 2025-04-23 11:58 | XMS_ITS | Encounter Summary ---
Author Organization [facility] Address [facility] [place] [address] Care Team Providers Care Methods Specialist Name Role Phone Ky Sandoval MD Unavailable Andrew Giles DO Primary Care Provider Jennifer Posada APRN, VALET-C Unavailable [phone] Ritchie Forrester MD Unavailable [phone] Encounter Details Date Type Department Care Team (Latest Contact Info) Description 06/02/2023 [email or web address] Message Enc [place] [facility] [address] [place] [address] Jennifer Posada APRN, VALET-C [address] [facility] [address] [place] [address] Effect of weight loss on prescriptions Social History Tobacco Use Types Packs/Day Years Used Date Smoking Tobacco: Former Smokeless Tobacco: Never Alcohol Use Standard Drinks/Week Comments Yes 0 (1 standard drink = 0.6 oz pur e alcohol) weekends Sex and Gender Information Value Date Recorded Sex Assigned at Male 11/21/2024 7:24 AM CDT Legal Sex Male 9:56 AM DUKEY RIDER Gender Identity Male 09/14/2021 1:55 PM DUKEY RIDER Sexual Orientation Straight 09/14/2021 1: 55 PM DUKEY RIDER Occupation Industry Job Start Date Job End Date Not on file Not on file Not on file Not on file documented as of this encounter Plan of Treatment Upcoming Encounters Date Type Department Care Team (Late st Contact Info) Description 05/03/2025 8:[address] [facility] [address] [place] [address] Jennifer Posada APRN, VALET-C [address] [address] 07/22/2025 1:30 PM DUKEY RIDER Office Visit [place] [facility] eld [address] [place] [address] Jennifer Posada APRN, VALET-C [address] [address] documented as of this encounter Visit Diagnoses Not on filedocumented in this encounter Care Teams Methods Specialist Relationship Specialty Start Date End Date Andrew Giles DO [address] [place] [address] PCP - General FAMILY PRACTICE 12/31/20 Ky Sandoval MD [address] [place] [address] [place] Automatic Grinding Machine Operator CARDIOVASCULAR DISEASE 08/13/19 03/29/24 Jennifer Posada APRN, VALET-C [address] [address] NURSE PRACTITIONER 03/30/24 Ritchie Forrester MD [address] [address] Consulting Physician INTERVENTIONAL CARDIOLOGY 07/24/24 documented as of this encounter
--- OUTSIDE RECORDS SUMMARY | 2025-04-23 11:58 | XMS_ITS | Encounter Summary ---
Author Organization [facility] Address [facility] [place] [address] Care Team Providers Care Belt Repairer Name Role Phone Ky Sandoval MD Unavailable [phone] Andrew Giles DO Primary Care Provider [phone] Jennifer Posada APRN, HEALTH POLICY MANAGER-C Unavailable Ritchie Forrester MD Unavailable [phone] Encounter Details Date Type Department Care Team (Late st Contact Info) Description 06/16/2023 At[employer] Message Enc [place] [facility] [address] [place] [address] Jennifer Posada APRN, HEALTH POLICY MANAGER-C [address] [facility] [address] [place] [address] refill request Social History Tobacco Use Types Packs/Day Years Used Date Smoking Tobacco: Former Smokeless Tobacco: Never Alcohol Use Standard Drinks/Week Comments Yes 0 (1 standard drink = 0.6 oz pur e alcohol) weekends Sex and Gender Information Value Date Recorded Sex Assigned at Male 11/21/2024 7:24 AM CDT Legal Sex Male 9:56 AM FLOOR INSTALLER Gender Identity Male 09/14/2021 1:55 PM FLOOR INSTALLER Sexual Orientation Straight 09/14/2021 1: 55 PM FLOOR INSTALLER Occupation Industry Job Start Date Job End Date Not on file Not on file Not on file Not on file documented as of this encounter Plan of Treatment Upcoming Encounters Date Type Department Care Team (Late st Contact Info) Description 05/03/2025 8:00 AM CDT Appointment [facility] [address] [place] [address] Jennifer Posada APRN, HEALTH POLICY MANAGER-C [address] [address] 07/22/2025 1:30 PM FLOOR INSTALLER Office Visit [place] [facility] eld [address] [place] [address] Jennifer Posada APRN, HEALTH POLICY MANAGER-C [address] [address] documented as of this encounter Visit Diagnoses Not on filedocumented in this encounter Care Teams Belt Repairer Relationship Specialty Start Date End Date Andrew Giles DO [address] [place] [address] PCP - General FAMILY PRACTICE 12/31/20 Ky Sandoval MD [address] [place] [address] [place] Professor [employer] Journalism CARDIOVASCULAR DISEASE 08/13/19 03/29/24 Jennifer Posada APRN, HEALTH POLICY MANAGER-C [address] [address] NURSE PRACTITIONER 03/30/24 Ritchie Forrester MD [address] [phone] Consulting Physician INTERVENTIONAL CARDIOLOGY 07/24/24 documented as of this encounter
--- OUTSIDE RECORDS SUMMARY | 2025-04-23 11:58 | XMS_ITS | Clinical Summary ---
Author Organization [facility] Address [address] [place] [address] Care Team Providers Care Public Speaking Teacher Name Role Phone AnujaAndrew novoa Primary Care Provider [phone] Jennifer Posada APRN SAFETY INVESTIGATORMilagrosC Unavailable Ritchie Forrester MD Unavailable Allergies Active [...] week. 4 Active amLODIPine (NORVASC) 2.5 MG tabletIndication s:Primary hypertension TAKE ONE TABLET BY MOUTH EVERY MORNING 90 tablet 3 5 Active omeprazole (PRILOSEC) 40 MG capsule Take 1 capsule (40 mg total) by mouth daily. 5 Active metoprolol tartrate (LOPRESSOR) 50 MG tablet Take 1 tablet (50 mg total) by mouth once for 1 dose. Take 50mg two hours prior to your test. Bring the additional tablets with you to the CTA. 3 tablet 5 04/22/20 Active Problems Problem Noted Date Diagnosed Date Hyperlipidemia 10/23/2019 WILFREDO (obstructive sleep apnea) 09/03/2019 Erectile dysfunction due to arterial insufficien cy 09/03/2019 Coronary artery disease DM (diabetes mellitus), type 2 ([facility] Hypertension Encounters Date Type Department Care Team Description 04/22/2025 Orders Only [facility] [place] [address] [place] [address] Jennifer Posada APRN, SAFETY INVESTIGATOR-C 04/19/2025 MyChart Message Enc [facility] [address] [place] [address] Jennifer oPsada APRN, SAFETY INVESTIGATOR-C 04/19/25 Update 04/19/2025 Abstract [facility] [address] [place] [address] Abstract, Doc Pccl 04/18/2025 Telephone [facility] [address] [place] [address] Jennifer Posada APRN, SAFETY INVESTIGATOR-C Follow Up Call 04/18/2025 MyChart Message Enc [facility] [address] [place] [address] Jennifer Posada APRN, SAFETY INVESTIGATOR-C ER follow-up 04/12/2025 MyChart Message Enc [facility] [address] [place] [address] Jennifer Posada APRN, SAFETY INVESTIGATOR-C ER visit from Last 3 Months Family History Medical [...] AM CDT Legal Sex Male 9:56 AM FRAME STRAIGHTENER Gender Identity Male 09/14/2021 1:55 PM FRAME STRAIGHTENER Sexual Orientation Straight 09/14/2021 1: 55 PM FRAME STRAIGHTENER Occupation Industry Job Start Date Job End Date Not on file Not on file Not on file Not on file Last Filed Vital Signs Vital Sign Reading Time Taken Comments Blood Pressure 116/74 07/23/2024 2:04 PM FRAME STRAIGHTENER Pulse 61 07/23/2024 2:04 PM FRAME STRAIGHTENER Temperature 36.7 C (98.1 F) 02/14/2023 11:15 AM CDT Respiratory Rate 18 07/23/2024 2:04 PM FRAME STRAIGHTENER Oxygen Saturation 98% 07/23/2024 2:04 PM FRAME STRAIGHTENER Inhaled Oxygen Concentration - - Weight 86.2 kg (190 lb) 07/23/2024 2:04 PM FRAME STRAIGHTENER Height 177.8 cm (5' 10) 07/23/2024 2:04 PM FRAME STRAIGHTENER Body Mass Index 27.26 07/23/2024 2:04 PM FRAME STRAIGHTENER Plan of Treatment Upcoming Encounters Date Type Department Care Team (Late st Contact Info) Description 05/03/2025 8:00 AM CDT Appointment [facility] [address] [place] [address] Jennifer Posada APRN, SAFETY INVESTIGATOR-C [address] [address] 07/22/2025 1:30 PM FRAME STRAIGHTENER Office Visit [place] [facility] eld [address] [place] [address] Jennifer Posada APRN, SAFETY INVESTIGATOR-C [address] [address] Health Maintenance Due Date Last Done Comments [...] Additional history exists COVID-19 Vaccine ( season) 2025 10/08/2020, 09/17/2020 Meningococcal B Vaccine Aged Out No l onger eligible based on patient's age to complete this topic Meningococcal Vaccine Aged Out No mirna ariel eligible based on patient's age to complete this topic RSV Immunizations Under 20 Months Aged Out No longer eligible based on patient's age to complete this topic Procedures Procedure Name Priority Date/Time Associated Diagnosis Comments COMPREHENSIVE METABOLIC PANEL Routine 04/12/2025 PRO-BRAIN NATRIURETIC PEPTIDE Routine 04/12/2025 CBC, MANUAL DIFF Routine 04/12/2025 LIPID PANEL Routine 03/30/2023 HEMOGLOBIN, GLYCOSYLATED Routine 09/14/2021 from Last 3 Months or Most Recently Relevant to Health Maintenance Results * PRO-BRAIN NATRIURETIC PEPTIDE (04/12/2025) PRO-B TYPE NATRIURETIC PEPTIDE 22 Narrative Resulting Agency Comment [facility] us Default History Genericprovider LABORATORY Final Result * COMPREHENSIVE METABOLIC PANEL (04/12/2025) SODIUM S/P/B 142 GLUCOSE 132 mg/dL AST 30 BUN 17 CREATININE S/P/B 1.14 0.7 - 1.3 CALCIUM S/P/B 10 POTASSIUM S/P/B 4.4 CHLORIDE S/P/B 104 ALT 23 GFR ESTIMATE >60 Narrative Resulting Agency Comment [facility] us Default History Genericprovider LABORATORY Final Result * CBC, MANUAL DIFF (04/12/2025) WBC 6.2 HGB 14.4 HCT 41.8 PLT 168 Narrative Resulting Agency Comment [facility] us Default History Genericprovider LABORATORY Final Result * (ABNORMAL) LIPID PANEL (03/30/2023) Pathologist [facility] CHOLESTEROL 139 0 - 200 HDL 42 [...] 4:43 PM 09/17/2019 8:20 PM Care Teams Public Speaking Teacher Relationship Specialty Start Date End Date Andrew Giles DO [address] [place] [address] PCP - General FAMILY PRACTICE 12/31/20 Jennifer Posada APRN, SAFETY INVESTIGATOR-C [address] [facility] [address] [place] [address] NURSE PRACTITIONER 03/30/24 Ritchie Forrester MD [address] [facility] [address] [place] [address] Consulting Physician INTERVENTIONAL CARDIOLOGY 07/24/24
--- OUTSIDE RECORDS SUMMARY | 2025-04-23 11:58 | XMS_ITS | Encounter Summary ---
Author Organization [facility] Address [facility] [place] [address] Care Team Providers Care Rock Wool Insulator Name Role Phone Ky Sandoval MD Unavailable Andrew Giles DO Primary Care Provider Jennifer Posada APRN, NP-C Unavailable Ritchie Forrester MD Unavailable Encounter Details Date Type Department Care Team (Late st Contact Info) Description 08/02/2023 Active Storage Message Enc [place] [facility] [address] [place] [address] Ky Sandoval MD [address] [place] [address] Blood Pressure readings after medicine change Social History Tobacco Use Types Packs/Day Years Used Date Smoking Tobacco: Former Smokeless Tobacco: Never Alcohol Use Standard Drinks/Week Comments Yes 0 (1 standard drink = 0.6 oz pur e alcohol) weekends Sex and Gender Information Value Date Recorded Sex Assigned at Male 11/21/2024 7:24 AM CDT Legal Sex Male 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 CAR 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 Gender Identity Male 09/14/2021 1:55 PM CAR RESTORER Sexual Orientation Straight 09/14/2021 1: 55 PM CAR RESTORER Occupation Industry Job Start Date Job End Date Not on file Not on file Not on file Not on file documented as of this encounter Plan of Treatment Upcoming Encounters Date Type Department Care Team (Late st Contact Info) Description 05/03/2025 8:00 AM CDT Appointment [facility] [address] [place] [address] Jennifer Posada APRN, MAINFRAME ARCHITECT-C [address] [address] 07/22/2025 1:30 PM CAR RESTORER Office Visit [facility] eld [address] [place] [address] Jennifer Posada APRN, MAINFRAME ARCHITECT-C [address] [address] documented as of this encounter Visit Diagnoses Not on filedocumented in this encounter Care Teams Rock Wool Insulator Relationship Specialty Start Date End Date Andrew Giles DO [address] [place] [address] PCP - General FAMILY PRACTICE 12/31/20 Ky Sandoval MD [address] [place] [address] [employer] Brm Developer CARDIOVASCULAR DISEASE 08/13/19 03/29/24 Jennifer Posada APRN, MAINFRAME ARCHITECT-C [address] [address] NURSE PRACTITIONER 03/30/24 Ritchie Forrester MD [address] [address] Consulting Physician INTERVENTIONAL CARDIOLOGY 07/24/24 documented as of this encounter
--- OUTSIDE RECORDS SUMMARY | 2025-04-23 11:58 | XMS_ITS | Encounter Summary ---
Author Organization [facility] Address [facility] [place] [address] Care Team Providers Care Windshield Technician Name Role Phone AnujasommerAndrew DO Primary Care Provider [phone] Jennifer Posada APRN, HOG OPERATOR-C Unavailable Ritchie Forrester MD Unavailable [phone] Encounter Details Date Type Department Care Team ([facility] st Contact Info) Description 07/24/2024 [employer] Message Enc [place] [facility] [address] [place] [address] Jennifer Posada APRN, HOG OPERATOR-C [address] [facility] [address] [place] [address] Your requested information Social History Tobacco Use Types Packs/Day Years Used Date Smoking Tobacco: Former Smokeless Tobacco: Never Alcohol Use Standard Drinks/Week Comments Yes 0 (1 standard drink = 0.6 oz pur e alcohol) weekends Sex and Gender Information Value Date Recorded Sex Assigned at Male 11/21/2024 7:24 AM CDT Legal Sex Male 9:56 AM FOREPART 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 Gender Identity Male 09/14/2021 1:55 PM FOREPART REDUCER Sexual Orientation Straight 09/14/2021 1: 55 PM FOREPART REDUCER Occupation Industry Job Start Date Job End Date Not on file Not on file Not on file Not on file documented as of this encounter Plan of Treatment Upcoming Encounters Date Type Department Care Team (Late st Contact Info) Description 05/03/2025 8:00 AM CDT Appointment [facility] [address] [place] [address] Jennifer Posada APRN, HOG OPERATOR-C [address] [address] 07/22/2025 1:30 PM FOREPART REDUCER Office Visit [place] [facility] eld [address] [place] [address] Jennifer Posada APRN, HOG OPERATOR-C [address] [address] documented as of this encounter Visit Diagnoses Not on filedocumented in this encounter Care Teams Windshield Technician Relationship Specialty Start Date End Date Andrew Giles DO [address] [place] [address] PCP - General FAMILY PRACTICE 12/31/20 Jennifer Posada APRN, HOG OPERATOR-C [address] [address] NURSE PRACTITIONER 03/30/24 Ritchie Forrester MD [address] [address] Consulting Physician INTERVENTIONAL CARDIOLOGY 07/24/24 documented as of this encounter
== END 2025-04-23 10:22 | disposition home or self-care (01) ==
LOC: CHSIMG 10:23
PROVIDERS: PCP Internal Medicine
DX: R51.9 Headache, unspecified (principal)
CPT/HCPCS: 70450

== ENCOUNTER 2025-05-27 17:13 | Outpatient (CLI) | payer OTHER, SELFPAY ==
[2025-05-27 17:40] LABS: Hematocrit 40.5 % (40.0-54.0); Hemoglobin 14.1 g/dL (14.0-18.0); Mean Corpuscular HGB Conc 34.8 g/dL (32-36); Mean Corpuscular Hemoglobin 29.7 pg (27.0-31.0); Mean Corpuscular Volume 85.4 fL (78.0-102.0); Platelet Count Result 174 K/mm3 (150-420); Red Blood Count 4.74 M/mm3 (4.70-6.10); White Blood Count 7.2 K/mm3 (4.8-10.8)
[2025-05-27 18:02] LABS: Anion Gap 8 mmol/L (4-12); Blood Urea Nitrogen 14 mg/dL (9-20); Calcium 10.0 mg/dL (8.4-10.2); Carbon Dioxide 29 mmol/L (22-30); Chloride 105 mmol/L (98-107); Estimated Glomerular Filt Rate > 60; Glucose 95 mg/dL (65-110); Osmolality Calculated 294 mOsm/kg (285-295); Potassium 4.4 mmol/L (3.4-5.0); Sodium 142 mmol/L (137-145)
== END 2025-05-27 17:14 | disposition home or self-care (01) ==
PROVIDERS: PCP Internal Medicine
DX: I25.119 Atherosclerotic heart disease of native coronary artery with unspecified angina pectoris (principal)
CPT/HCPCS: 36415; 80048; 85027